=== PATIENT | female | born 1970 | race Caucasian/White ===

== ENCOUNTER 2017-06-02 18:16 | Emergency (ER) | payer MEDICARE ==
--- NOTE | 2017-06-02 18:34 | ERPHSYRPT ---
- History of Present Illness Time Seen by Provider: 06/02/17 18:29 Source: patient Physician History: CC: left thumb injury Hx: 47 y/o patient of Dr Marques with hx of stroke affected right side was folding laundry and caught the left thumb and felt a pop this evening. Moderate pain for which she took a vicodin. No other injuries. Prior carpal tunnel surgery. Occurred: just prior to arrival Severity of Pain-Max: moderate Severity of Pain-Current: moderate Extremities Pain Location: thumb: left Allergies/Adverse Reactions: No Known Drug Allergies Allergy (Verified 06/02/17 18:32) Home Medications: Alprazolam 1 mg [Xanax 1 mg] 1 mg PO TID 01/25/17 [History] Aspirin [Aspirin EC] 81 mg PO DAILY 01/25/17 [History] Cholecalciferol (Vitamin D3) [Vitamin D] 1,000 unit PO DAILY 01/25/17 [ History] Clopidogrel Bisulfate 75 mg [PLAVIX 75 MG Tablet] 75 mg PO DAILY 01/25/17 [History] Dextroamphetamine/Amphetamine [Adderall 20 mg Tablet] 20 mg PO BID 01/25/17 [ History] Fluoxetine HCl [Prozac] 20 mg PO DAILY 01/25/17 [History] Furosemide 40 mg [Lasix 40 MG] 40 mg PO DAILY 01/25/17 [History] Hydrocodone/APAP 10/325 mg [[place] 10/325 MG Tablet] 1 tab PO Q4-6HPRN PRN 01/25/17 [History] Levothyroxine Sodium 75 Mcg [Synthroid 75 Mcg] 75 mcg PO DAILY 01/25/17 [ History] Lisinopril 20 mg [Zestril 20 MG] 20 mg PO DAILY 01/25/17 [History] Metformin HCl 500 mg [Glucophage 500 MG] 500 mg PO BID 01/25/17 [History] Potassium Chloride 10 Meq Tab* [Klor Con 10 MEQ] 10 meq PO .UNKNOWN 01/25/17 [History] Sennosides [Senokot] 8.6 mg PO .UNKNOWN 01/25/17 [History] Simvastatin 20 mg PO HS 01/25/17 [History] Zolpidem Tartrate [Ambien] 10 mg PO HS 01/25/17 [History] Hx Tetanus, Diphtheria Vaccination/Date Given: Yes Hx Influenza Vaccination/Date Given: Yes Hx Pneumococcal Vaccination/Date Given: Yes - Review of Systems Constitutional: No Symptoms Musculoskeletal: Injury (left thumb), No Back Pain, No Neck Pain Neurological: Focal Weakness (right side chronic) - Past Medical History Pertinent Past Medical History: Yes Neurological History: Stroke ENT History: No Pertinent History Cardiac History: Hypertension Respiratory History: No Pertinent History Endocrine Medical History: Diabetes Type II Musculoskeletal History: No Pertinent History GI Medical History: No Pertinent History History: No Pertinent History Psycho-Social History: Anxiety, Depression, Panic Disorder Female Reproductive Disorders: No Pertinent History - Past Surgical History Past Surgical History: Yes Neuro Surgical History: No Pertinent History Cardiac: No Pertinent History Respiratory: No Pertinent History Gastrointestinal: No Pertinent History Genitourinary: No Pertinent History Musculoskeletal: Orthopedic Surgery Female Surgical History: No Pertinent History Other Surgical History: right foot surg - Social History Smoking Status: Current every day smoker How long have you smoked: 20 yrs Exposure to second hand smoke: Yes Drug Use: none Patient Lives Alone: Yes Significant Family History: heart disease - Female History Hx Now: No - Nursing Vital Signs Nursing Vital Signs: Initial Vital Signs Temperature 98.0 F 06/02/17 18:31 Pulse Rate 90 06/02/17 18:31 Respiratory Rate 18 06/02/17 18:31 Blood Pressure 121/69 06/02/17 18:31 O2 Sat by Pulse Oximetry 98 06/02/17 18:31 Pain Scale Pain Intensity 4 - Physical Exam General Appearance: alert Eyes, Ears, Nose, Throat Exam: moist mucous membranes Neck Exam: supple Cardiovascular/Respiratory Exam: regular rate/rhythm Mental Status Exam: alert, oriented x 3, cooperative Skin Exam: warm, dry Comments: left thumb tender with some swelling at the MCP. ROM intact. Good cap refill. Good radial pulse. No wrist tenderness. - Course Nursing assessment & vital signs reviewed: Yes - Radiology Exams left hand X-ray Interpretation: Interpreted by me (avulsion chip at MCP, no other fx or dislocation) Ordered Tests: Active Orders 24 hr Category Date Time Status Cold Application STAT Care 06/02/17 18:29 Active Splint STAT Care 06/02/17 18:29 Active HAND (MINIMUM 3 VIEWS) Stat Exams 06/02/17 18:29 Taken - Progress Progress Note: 06/02/17 19:05 She has pain medication at home. She will follow up with Dr Marques or hand doctor next week. Splinted in thumb spica position per RN. Good cap refill and alignment post splint. Counseled pt/family regarding: diagnosis, need for follow-up - Departure Time of Disposition: 19:06 Departure Disposition: Home Clinical Impression: Left thumb sprain, avulsion fracture left thumb MCP Condition: Stable Critical Care Time: No Referrals: KAMILA MARQUES [Primary Care Provider] - Instructions: Finger Fracture Additional Instructions: Splint Ice Rest Take your pain medication as already prescribed. Follow up with Dr Bell or hand doctor next week.
[2017-06-02 19:20] VITALS: BP 111/66; PULSE 85; O2SAT 100
--- NOTE | 2017-06-02 22:48 | XRAY ---
Indication: First MCP pain. Comparison: None 3 views of the left hand demonstrates tiny well circumscribed ossification adjacent to the head of the first metacarpal either degenerative versus old injury. No other bony, articular, or soft tissue abnormalities.
== END 2017-06-02 19:20 | disposition home or self-care (01) ==
LOC: ED 18:16
PROC: 2W3HX1Z Immobilization of Left Thumb using Splint (ICD-10-PCS; principal; 2017-06-02)
DX: S63.602A Unspecified sprain of left thumb, initial encounter (principal); S62.502A Fracture of unspecified phalanx of left thumb, initial encounter for closed fracture; X50.0XXA Overexertion from strenuous movement or load, initial encounter; E11.9 Type 2 diabetes mellitus without complications; I10 Essential (primary) hypertension; Z79.899 Other long term (current) drug therapy; Z79.84 Long term (current) use of oral hypoglycemic drugs; I25.2 Old myocardial infarction
CPT/HCPCS: 29131; 73130; 99283

== ENCOUNTER 2017-09-03 17:08 | Emergency (ER) | payer MEDICARE ==
--- NOTE | 2017-09-03 17:39 | ERPHSYRPT ---
- History of Present Illness Time Seen by Provider: 09/03/17 17:31 Source: patient, family Exam Limitations: no limitations Patient Subjective Stated Complaint: pt co pain to left jaw started today, pain does not radiate, no chest pain, no n/v. Triage Nursing Assessment: pt walked in, resp easy, skin w/d pink. pt has hx of old stroke and is flaccid to right arm Physician History: The patient is a 47-year-old female complaining of intermittent left neck and jaw pain that began 4-1/2 hours ago. The pain will last 2 seconds and then goes away. It is a sharp pain. He has happened maybe 10 times over the last 4- 1/2 hours. She denies nausea or shortness of breath. She denies chest pain. Nothing seems to reproduce or cause the pain that she can identify. She called her local doctor and was not able to get in. She was concerned to wait until tomorrow. Her past medical history is significant for a stroke with residual right-sided weakness, diabetes, hypertension, high cholesterol, hypothyroidism, and ADHD. Timing/Duration: today, hour(s) (4 1/2), intermittent, resolved prior to arrival , sudden Severity: mild Modifying Factors: Improves With: nothing Associated Symptoms: denies symptoms, No nausea, No vomiting, No shortness of breath, No chest pain Allergies/Adverse Reactions: No Known Drug Allergies Allergy (Verified 09/03/17 17:19) Home Medications: Alprazolam 1 mg [Xanax 1 mg] 1 mg PO TID 01/25/17 [History] Aspirin [Aspirin EC] 81 mg PO DAILY 01/25/17 [History] Cholecalciferol (Vitamin D3) [Vitamin D] 1,000 unit PO DAILY 01/25/17 [ History] Clopidogrel Bisulfate 75 mg [PLAVIX 75 MG Tablet] 75 mg PO DAILY 01/25/17 [History] Dextroamphetamine/Amphetamine [Adderall 20 mg Tablet] 30 mg PO BID 01/25/17 [ History] Fluoxetine HCl [Prozac] 20 mg PO DAILY 01/25/17 [History] Furosemide 40 mg [Lasix 40 MG] 40 mg PO DAILY 01/25/17 [History] Hydrocodone/APAP 10/325 mg [[place] 10/325 MG Tablet] 1 tab PO Q4-6HPRN PRN 01/25/17 [History] Levothyroxine Sodium 75 Mcg [Synthroid 75 Mcg] 75 mcg PO DAILY 01/25/17 [ History] Lisinopril 20 mg [Zestril 20 MG] 20 mg PO DAILY 01/25/17 [History] Metformin HCl 500 mg [Glucophage 500 MG] 500 mg PO BID 01/25/17 [History] Potassium Chloride 10 Meq Tab* [Klor Con 10 MEQ] 10 meq PO .UNKNOWN 01/25/17 [History] Sennosides [Senokot] 8.6 mg PO .UNKNOWN 01/25/17 [History] Simvastatin 20 mg PO HS 01/25/17 [History] Zolpidem Tartrate [Ambien] 10 mg PO HS 01/25/17 [History] Hx Tetanus, Diphtheria Vaccination/Date Given: Yes Hx Influenza Vaccination/Date Given: No Hx Pneumococcal Vaccination/Date Given: No Immunizations Up to Date: Yes - Review of Systems Constitutional: No Fever, No Chills Eyes: No Symptoms Ears, Nose, & Throat: No Symptoms Respiratory: No Cough, No Dyspnea Cardiac: No Chest Pain, No Edema, No Syncope Abdominal/Gastrointestinal: No Abdominal Pain, No Nausea, No Vomiting, No Diarrhea Genitourinary Symptoms: No Dysuria Musculoskeletal: Neck Pain Skin: No Rash Neurological: No Dizziness, No Focal Weakness, No Sensory Changes Psychological: No Symptoms Endocrine: No Symptoms Hematologic/Lymphatic: No Symptoms Immunological/Allergic: No Symptoms All Other Systems: Reviewed and Negative - Past Medical History Pertinent Past Medical History: Yes Neurological History: Stroke ENT History: No Pertinent History Cardiac History: High Cholesterol, Hypertension Respiratory History: No Pertinent History Endocrine Medical History: Diabetes Type II Musculoskeletal History: No Pertinent History GI Medical History: No Pertinent History History: No Pertinent History Psycho-Social History: Anxiety, Depression, Panic Disorder Female Reproductive Disorders: No Pertinent History - Past Surgical History Past Surgical History: Yes Neuro Surgical History: No Pertinent History Cardiac: No Pertinent History Respiratory: No Pertinent History Gastrointestinal: No Pertinent History Genitourinary: No Pertinent History Musculoskeletal: Orthopedic Surgery Female Surgical History: No Pertinent History Other Surgical History: right foot surg - Social History Smoking Status: Current every day smoker How long have you smoked: 20 yrs Exposure to second hand smoke: Yes Drug Use: none Patient Lives Alone: No Significant Family History: heart disease - Female History Hx Last Menstrual Period: last week Hx Now: No - Nursing Vital Signs Nursing Vital Signs: Initial Vital Signs Temperature 98.3 F 09/03/17 17:14 Pulse Rate 93 H 09/03/17 17:14 Respiratory Rate 18 09/03/17 17:14 Blood Pressure 148/75 09/03/17 17:14 O2 Sat by Pulse Oximetry 99 09/03/17 17:14 Pain Scale Pain Intensity [Jaw] 7 Pain Intensity 5 - Physical Exam General Appearance: no apparent distress, alert Eye Exam: PERRL/EOMI, eyes nml inspection Ears, Nose, Throat Exam: normal ENT inspection, TMs normal, pharynx normal, moist mucous membranes Neck Exam: normal inspection, non-tender, supple, full range of motion, other ( No neck pain at present time nor tenderness on palpation.) Respiratory Exam: normal breath sounds, lungs clear, No respiratory distress Cardiovascular Exam: regular rate/rhythm, normal heart sounds, normal peripheral pulses Gastrointestinal/Abdomen Exam: soft, normal bowel sounds, No tenderness, No mass Pelvic Exam: not done Rectal Exam: not done Back Exam: normal inspection, normal range of motion, No CVA tenderness, No vertebral tenderness Extremity Exam: normal inspection, normal range of motion, pelvis stable Neurologic Exam: alert, oriented x 3, cooperative, normal mood/affect, nml cerebellar function, nml station & gait, sensation nml, No motor deficits Skin Exam: normal color, warm, dry, No rash Lymphatic Exam: No adenopathy SpO2 Interpretation: normal SpO2: 99 Oxygen Delivery: Room Air - Course EKG Interpreted by Me: RATE, Sinus Rhythm, NORMAL AXIS, NORMAL INTERVALS, NORMAL QRS, NORMAL ST-T, Other (No change comp EKG 02/21/17) Ordered Tests: Active Orders 24 hr Category Date Time Status Clean Catch Urine Specimen STAT Care 09/03/17 18:05 Active EKG-ER Only STAT Care 09/03/17 17:28 Active IV Insertion STAT Care 09/03/17 17:28 Active CHEST 2 VIEWS (PA AND LAT) Stat Exams 09/03/17 17:44 Taken CBC W DIFF Stat Lab 09/03/17 17:58 Completed CMP Stat Lab 09/03/17 17:58 Completed TROPONIN Q3H Lab 09/03/17 17:45 Completed TROPONIN Q3H Lab 09/03/17 20:45 Ordered TROPONIN Q3H Lab 09/03/17 23:45 Ordered TROPONIN Q3H Lab 09/04/17 02:45 Ordered TROPONIN Q3H Lab 09/04/17 05:45 Ordered UA W/RFX UR CULTURE Stat Lab 09/03/17 17:58 Completed Lab/Rad Data: Laboratory Result Diagrams 09/03/17 17:58 09/03/17 17:58 Laboratory Results 09/03/17 09/03/17 09/03/17 Range/Units 17:58 17:58 17:58 WBC 9.3 (4.0-10.5) K/mm3 RBC 3.66 L (4.1-5.4) M/mm3 Hgb 11.7 L (12.0-16.0) gm/dl Hct 36.5 (35-47) % MCV 99.7 (78-100) fl MCH 31.9 (26-32) pg MCHC 32.1 (32-36) g/dl RDW 13.3 (11.5-14.0) % Plt Count 305 (150-450) K/mm3 MPV 10.6 H (6-9.5) fl Gran % 59.0 (36.0-66.0) % Lymphocytes % 32.2 (24.0-44.0) % Monocytes % 6.2 (0.0-12.0) % Eosinophils % 2.2 (0.00-5.0) % Basophils % 0.4 (0.0-0.4) % Basophils # 0.04 (0-0.4) Sodium 142 (136-145) mEq/L Potassium 4.4 (3.5-5.1) mEq/L Chloride 105 (98-107) mEq/L Carbon Dioxide 28.1 (21-32) mEq/L Anion Gap 13.4 (5-15) MEQ/L BUN 10 (9-20) mg/dL Creatinine 0.78 (0.55-1.30) mg/dl Estimated GFR > 60 ML/MIN Glucose 120 H (70-110) MG/DL Calcium 9.2 (8.5-10.1) mg/dL Total Bilirubin 0.20 (0.2-1.0) mg/dL AST 17 (15-37) U/L ALT 24 (12-78) U/L Alkaline Phosphatase 69 (46-116) U/L Troponin I (0.000-0.056) ng/ml Serum Total Protein 7.4 (6.4-8.2) gm/dL Albumin 3.9 (3.4-5.0) g/dL Ur Collection Type CLEAN CATCH Urine Color YELLOW (YELLOW) Urine Appearance CLEAR (CLEAR) Urine pH 5.0 (5-6) Ur Specific [place] 1.005 (1.005-1.025) Urine Protein NEGATIVE (Negative) Urine Ketones NEGATIVE (NEGATIVE) Urine Blood NEGATIVE (0-5) Maurisio/ul Urine Nitrite NEGATIVE (NEGATIVE) Urine Bilirubin NEGATIVE (NEGATIVE) Urine Urobilinogen NORMAL (0-1) mg/dL Ur Leukocyte Esterase NEGATIVE (NEGATIVE) Urine Culture Reflexed NO (NO) Urine Glucose NEGATIVE (NEGATIVE) mg/dL Specimen Received [id number] 09/03/17 Range/Units 17:45 WBC (4.0-10.5) K/mm3 RBC (4.1-5.4) M/mm3 Hgb (12.0-16.0) gm/dl Hct (35-47) % MCV (78-100) fl MCH (26-32) pg MCHC (32-36) g/dl RDW (11.5-14.0) % Plt Count (150-450) K/mm3 MPV (6-9.5) fl Gran % (36.0-66.0) % Lymphocytes % (24.0-44.0) % Monocytes % (0.0-12.0) % Eosinophils % (0.00-5.0) % Basophils % (0.0-0.4) % Basophils # (0-0.4) Sodium (136-145) mEq/L Potassium (3.5-5.1) mEq/L Chloride (98-107) mEq/L Carbon Dioxide (21-32) mEq/L Anion Gap (5-15) MEQ/L BUN (9-20) mg/dL Creatinine (0.55-1.30) mg/dl Estimated GFR ML/MIN Glucose (70-110) MG/DL Calcium (8.5-10.1) mg/dL Total Bilirubin (0.2-1.0) mg/dL AST (15-37) U/L ALT (12-78) U/L Alkaline Phosphatase (46-116) U/L Troponin I < 0.017 (0.000-0.056) ng/ml Serum Total Protein (6.4-8.2) gm/dL Albumin (3.4-5.0) g/dL Ur Collection Type Urine Color (YELLOW) Urine Appearance (CLEAR) Urine pH (5-6) Ur Specific [place] (1.005-1.025) Urine Protein (Negative) Urine Ketones (NEGATIVE) Urine Blood (0-5) Maurisio/ul Urine Nitrite (NEGATIVE) Urine Bilirubin (NEGATIVE) Urine Urobilinogen (0-1) mg/dL Ur Leukocyte Esterase (NEGATIVE) Urine Culture Reflexed (NO) Urine Glucose (NEGATIVE) mg/dL Specimen Received - Progress Progress: improved (on the step was a moderate-sized fatty umbilic with us the mid I did) - Departure Time of Disposition: 18:57 Departure Disposition: Home Clinical Impression: Neck pain on left side Condition: Stable Critical Care Time: No Referrals: KAMILA MENDOZA [Primary Care Provider] - Additional Instructions: You have brief intermittent episodes of left-sided neck pain. The evaluation in the ER did not show any evidence of cardiac problems, including an EKG and a troponin. Follow up tomorrow with your family doctor.
[2017-09-03 18:06] LABS: BASOPHIL % 0.4 % (0.0-0.4); Eosinophil % 2.2 % (0.00-5.0); Lymphocytes % 32.2 % (24.0-44.0); Mean Cell Volume 99.7 fl (78-100); Mean Platelet Volume 10.6 fl (6-9.5); Monocytes % 6.2 % (0.0-12.0); Platelet Count 305 K/mm3 (150-450); Red Blood Count 3.66 M/mm3 (4.1-5.4); Red Cell Distribution Width 13.3 % (11.5-14.0); White Blood Count 9.3 K/mm3 (4.0-10.5)
[2017-09-03 18:08] LABS: Mean Corpuscular Hemoglobin 31.9 pg (26-32)
[2017-09-03 18:11] LABS: Bilirubin NEGATIVE (NEGATIVE); Blood NEGATIVE Ery/ul (0-5); COMPLETE URINE MICROSCOPIC? NO; Collection Type CLEAN CATCH; Glucose NEGATIVE (NEGATIVE); Leukocyte Esterase NEGATIVE (NEGATIVE)
[2017-09-03 18:33] LABS: ALBUMIN 3.9 g/dL (3.4-5.0); ALKALINE PHOSPHATASE 69 U/L (46-116); ANION GAP 13.4 MEQ/L (5-15); BLOOD UREA NITROGEN 10 mg/dL (9-20); CHLORIDE 105 mEq/L (98-107); Carbon Dioxide 28.1 mEq/L (21-32); Glucose 120 MG/DL (70-110); Potassium 4.4 mEq/L (3.5-5.1); SGOT/AST 17 U/L (15-37); SGPT/ALT 24 U/L (12-78); SODIUM 142 mEq/L (136-145); Total Protein 7.4 gm/dL (6.4-8.2)
[2017-09-03 18:35] LABS: ADD URINE CULTURE? NO (NO)
[2017-09-03 19:17] VITALS: BP 134/75; PULSE 76; O2SAT 97
--- NOTE | 2017-09-04 08:44 | XRAY ---
Indication: Neck pain. Comparison: October 17, 2012. PA/lateral chest again demonstrates normal heart and lungs. Bony thorax intact. No new/acute findings.
== END 2017-09-03 19:11 | disposition home or self-care (01) ==
LOC: ED 17:08
DX: M54.2 Cervicalgia (principal); I69.351 Hemiplegia and hemiparesis following cerebral infarction affecting right dominant side; E11.9 Type 2 diabetes mellitus without complications; I10 Essential (primary) hypertension; E78.00 Pure hypercholesterolemia, unspecified; E03.9 Hypothyroidism, unspecified; F90.9 Attention-deficit hyperactivity disorder, unspecified type; Z79.899 Other long term (current) drug therapy; Z79.891 Long term (current) use of opiate analgesic; Z79.84 Long term (current) use of oral hypoglycemic drugs
CPT/HCPCS: 36000; 36415; 71020; 80053; 81002; 84484; 85025; 93005; 99284

== ENCOUNTER 2020-04-01 11:47 | Observation (INO) | payer MEDICARE ==
[2020-04-01] MEDS ORDERED: Sodium Chloride 0.9% 1000 ML 1,000 ML IV STA (11:50)
--- NOTE | 2020-04-01 12:01 | ERPHSYRPT ---
- History of Present Illness Time Seen by Provider: 04/01/20 12:00 Source: patient Exam Limitations: no limitations Physician History: Patient is a 50-year-old female with a history of diabetes and stroke presents to our ED from the physical therapy department here at [facility]. Patient was standing in the parallel bars performing exercises when she became lightheaded. Patient was walked over to the exercise mat where she had a syncopal episode. Syncope lasted approximately 5 minutes before patient awoke. There was no seizure-like activity reported. No associated trauma. Patient denied chest pain shortness of breath. Accu-Chek at the time was 113. Vitals were immediately assessed and were all within normal limits. monitoring manager revealed sinus rhythm. Physical therapy was discontinued. Patient was brought to our ED for an evaluation. Patient denies pain at this time. Patient is unsure what happened. Patient voices no other complaints at this time. Witnessed: other Prior Episodes: single episode today Timing/Duration: today, other (Syncopal episode lasted approximately 5 minutes.) Precipitating Factors: other (Patient was in physical therapy department ambulating in the parallel bars) Context: standing Loss of Consciousness: prolonged (minutes) Charcter of event(s): became unresponsive (While in the parallel bars patient began to feel lightheaded. Patient was walked over to the exercise table and fainted. There is no collapse no trauma associated with this event.) Allergies/Adverse Reactions: No Known Drug Allergies Allergy (Verified 09/03/17 17:19) Home Medications: Alprazolam 1 mg [Xanax 1 mg] 1 mg PO TID 01/25/17 [History] Aspirin [Aspirin EC] 81 mg PO DAILY 01/25/17 [History] Cholecalciferol (Vitamin D3) [Vitamin D] 1,000 unit PO DAILY 01/25/17 [ History] Clopidogrel Bisulfate 75 mg [PLAVIX 75 MG Tablet] 75 mg PO DAILY 01/25/17 [History] Dextroamphetamine/Amphetamine [Adderall 20 mg Tablet] 30 mg PO BID 01/25/17 [ History] Fluoxetine HCl [Prozac] 20 mg PO DAILY 01/25/17 [History] Furosemide 40 mg [Lasix 40 MG] 40 mg PO DAILY 01/25/17 [History] Hydrocodone/APAP 10/325 mg [[place] 10/325 MG Tablet] 1 tab PO Q4-6HPRN PRN 01/25/17 [History] Levothyroxine Sodium 75 Mcg [Synthroid 75 Mcg] 75 mcg PO DAILY 01/25/17 [ History] Lisinopril 20 mg [Zestril 20 MG] 20 mg PO DAILY 01/25/17 [History] Metformin HCl 500 mg [Glucophage 500 MG] 500 mg PO BID 01/25/17 [History] Potassium Chloride 10 Meq Tab* [Klor Con 10 MEQ] 10 meq PO .UNKNOWN 01/25/17 [History] Sennosides [Senokot] 8.6 mg PO .UNKNOWN 01/25/17 [History] Simvastatin 20 mg PO HS 01/25/17 [History] Zolpidem Tartrate [Ambien] 10 mg PO HS 01/25/17 [History] Hx Tetanus, Diphtheria Vaccination/Date Given: Yes Hx Influenza Vaccination/Date Given: No Hx Pneumococcal Vaccination/Date Given: No - Past Medical History Pertinent Past Medical History: Yes Neurological History: No Pertinent History ENT History: No Pertinent History Cardiac History: High Cholesterol, Hypertension Respiratory History: No Pertinent History Endocrine Medical History: Diabetes Type II, Hypothyroidism Musculoskeletal History: Arthritis GI Medical History: No Pertinent History History: No Pertinent History Psycho-Social History: Anxiety, Depression, Panic Disorder Female Reproductive Disorders: No Pertinent History - Past Surgical History Past Surgical History: Yes Neuro Surgical History: No Pertinent History Cardiac: No Pertinent History Respiratory: No Pertinent History Gastrointestinal: No Pertinent History Genitourinary: No Pertinent History Musculoskeletal: Orthopedic Surgery Female Surgical History: No Pertinent History Other Surgical History: right foot surg - Social History Smoking Status: Current every day smoker How long have you smoked: 20 yrs Exposure to second hand smoke: Yes Drug Use: none Patient Lives Alone: No Significant Family History: heart disease - Review of Systems Constitutional: No Symptoms, No Fever, No Chills Eyes: No Symptoms Ears, Nose, & Throat: No Symptoms Respiratory: No Symptoms, No Cough, No Dyspnea Cardiac: No Symptoms, No Chest Pain, No Edema, No Syncope Abdominal/Gastrointestinal: No Symptoms, No Abdominal Pain, No Nausea, No Vomiting, No Diarrhea Genitourinary Symptoms: No Symptoms, No Dysuria Musculoskeletal: No Symptoms, No Back Pain, No Neck Pain Skin: No Symptoms, No Rash Neurological: No Symptoms, No Dizziness, No Focal Weakness, No Sensory Changes Psychological: No Symptoms Endocrine: No Symptoms Hematologic/Lymphatic: No Symptoms Immunological/Allergic: No Symptoms All Other Systems: Reviewed and Negative Physical Exam - Nursing Vital Signs Nursing Vital Signs: Initial Vital Signs Temperature 99.2 F 04/01/20 11:48 Pulse Rate 92 H 04/01/20 11:48 Respiratory Rate 22 04/01/20 11:48 Blood Pressure 135/76 04/01/20 11:48 O2 Sat by Pulse Oximetry 98 04/01/20 11:48 Pain Scale Pain Intensity 0 - [place] Coma Scale Best Eye Response (Andre): (4) open spontaneously Best Verbal Response (Andre): (5) oriented Best Motor Response ([place]): (6) obeys commands Andre Total: 15 - Physical Exam General Appearance: no apparent distress, alert Eye Exam: bilateral eye: normal inspection, PERRL, EOMI Ears, Nose, Throat Exam: normal ENT inspection, pharynx normal, moist mucous membranes Neck Exam: normal inspection, non-tender, supple, full range of motion Respiratory: normal breath sounds, lungs clear, No chest tenderness, No respiratory distress Cardiovascular: regular rate/rhythm, capillary refill <2 sec, No murmur, No pulse deficit Gastrointestinal: soft, No tenderness, No distention, No mass Back Exam: normal inspection, normal range of motion, No CVA tenderness, No vertebral tenderness Extremity Exam: normal inspection, normal range of motion, pelvis stable, No tenderness Peripheral Pulses: carotid (R): 2+, carotid (L): 2+, dorsalis-pedis (R): 2+, dorsalis-pedis (L): 2+ Mental Status: alert, oriented 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, 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 Exam: normal hearing, normal speech, PERRL, No abnormal eye position, No abnormal gag reflex, No abnormal pupil position, No abnormal speech, No facial asymmetry, No facial droop, No facial paresthesias, No facial weakness Coordination/Gait: normal finger to nose Motor/Sensory: no motor deficit (Patient has residual right upper extremity spasticity and right lower extremity weakness due to a stroke in 2008.), no sensory deficit, no pronator drift Skin Exam: normal color, warm, dry, No rash SpO2 Interpretation: normal SpO2: 98 O2 Delivery: Room Air - Course Nursing assessment & vital signs reviewed: Yes EKG Interpreted by Me: RATE (89), Sinus Rhythm, NORMAL AXIS, NORMAL INTERVALS - Radiology Exams Chest X-ray Interpretation: Teleradiologist Report (Normal heart and lungs. Bony thorax intact no new or acute findings.) - CT Exams Head CT Interpretation: Tele-radiologist Report (Left periventricular remote infarct. No acute intracranial abnormalities. Comparison is June 13, 2016.) Ordered Tests: Active Orders 24 hr Category Date Time Status Architecture Analyst STAT Care 04/01/20 11:51 Active EKG-ER Only STAT Care 04/01/20 11:50 Active IV Insertion STAT Care 04/01/20 11:50 Active Pulse Oximetry (ED) STAT Care 04/01/20 11:50 Active CHEST 1 VIEW (PORTABLE) Stat Exams 04/01/20 11:51 Completed HEAD WITHOUT CONTRAST [CT] Stat Exams 04/01/20 11:51 Completed BMP Stat Lab 04/01/20 12:41 Completed CBC W DIFF Stat Lab 04/01/20 12:07 Completed CMP Stat Lab 04/01/20 12:07 Completed ETHYL ALCOHOL Stat Lab 04/01/20 12:07 Completed MAG [MAGNESIUM] Stat Lab 04/01/20 12:42 Completed TROPONIN Q3H Lab 04/01/20 12:07 Completed TROPONIN Q3H Lab 04/01/20 15:00 Ordered TROPONIN Q3H Lab 04/01/20 18:00 Ordered TROPONIN Q3H Lab 04/01/20 21:00 Ordered TROPONIN Q3H Lab 04/02/20 00:00 Ordered UA W/RFX UR CULTURE Stat Lab 04/01/20 Completed Urine Triage Profile Stat Lab 04/01/20 13:30 Completed VBG [VENOUS BLOOD GAS] Stat Lab 04/01/20 13:07 Completed Transfer Order Routine Transfer 04/01/20 Ordered Medication Summary Generic Name Dose Route Start Last Admin Trade Name Freq PRN Reason Stop Dose Admin Sodium Bicarbonate 75 meq/ 1,075 mls @ 75 mls/hr 04/01/20 13:30 04/01/20 14: 28 Dextrose/Sodium Chloride IV 05/01/20 13:29 0 mls/hr .[id number] KIMBERLY 0 mls/hr Infusion Discontinued Medications Generic Name Dose Route Start Last Admin Trade Name Freq PRN Reason Stop Dose Admin Calcium Gluconate 1,000 mg 04/01/20 13:14 04/01/20 13:53 Calcium Gluconate 10% 1000 Mg IV 04/01/20 13:15 1,000 mg STAT ONE Administration Calcium Gluconate Confirm 04/01/20 13:45 Calcium Gluconate 10% 1000 Mg Administered 04/01/20 13:46 Dose 1,000 mg IV .STK-MED ONE Furosemide 20 mg 04/01/20 13:22 04/01/20 14:08 Lasix 20 Mg/2 Ml IV 04/01/20 13:23 Not Given ONCE STA Furosemide 20 mg 04/01/20 14:00 04/01/20 14:13 Lasix 40 Mg/4 Ml IV 04/01/20 14:01 20 mg NOW ONE Administration Furosemide Confirm 04/01/20 14:10 Lasix 40 Mg/4 Ml Administered 04/01/20 14:11 Dose 40 mg .ROUTE .STK-MED ONE Sodium Chloride 1,000 mls @ 999 mls/hr 04/01/20 11:50 04/01/20 13:43 Sodium Chloride 0.9% 1000 Ml IV 04/01/20 12:50 Infused .Q1H1M STA Infusion Sodium Chloride Confirm 04/01/20 12:23 Sodium Chloride 0.9% 1000 Ml Administered 04/01/20 12:24 Dose 1,000 mls @ ud .ROUTE .STK-MED ONE Sodium Polystyrene Sulfonate 30 g 04/01/20 13:14 04/01/20 14:10 Kayexylate 15 Gm/60 Ml PO 04/01/20 13:15 Not Given STAT ONE Sodium Polystyrene Sulfonate Confirm 04/01/20 13:45 Kayexylate 15 Gm/60 Ml Administered 04/01/20 13:46 Dose 30 g .ROUTE .STK-MED ONE Lab/Rad Data: Laboratory Result Diagrams 04/01/20 12:07 04/01/20 12:41 Laboratory Results 04/01/20 04/01/20 04/01/20 Range/Units Unknown 13:30 13:07 WBC (4.0-10.5) K/mm3 RBC (4.1-5.4) M/mm3 Hgb (12.0-16.0) gm/dl Hct (35-47) % MCV (78-100) fl MCH (26-32) pg MCHC (32-36) g/dl RDW (11.5-14.0) % Plt Count (150-450) K/mm3 MPV (7.5-11.0) fl Gran % (36.0-66.0) % Eos # (Auto) (0-0.5) Absolute Lymphs (auto) (1.0-4.6) Absolute Monos (auto) (0.0-1.3) Lymphocytes % (24.0-44.0) % Monocytes % (0.0-12.0) % Eosinophils % (0.00-5.0) % Basophils % (0.0-0.4) % Absolute Granulocytes (1.4-6.9) Basophils # (0-0.4) pO2/FiO2 Ratio 21.0 % VBG pH 7.36 (7.32-7.42) VBG pCO2 at Pat Temp 45 (42-55) mm/Hg VBG pO2 at Pat Temp 20 L (25-40) mm/Hg VBG HCO3 25.4 (22-28) meq/L VBG O2 Sat (Harinder) 40.4 L (95-100) VBG Base Excess -0.4 (-2.0-2.0) VBG Hemoglobin 11.8 VBG Carboxyhemoglobin 4.3 (0.0-6.9) % T HGB POC Potassium 5.7 H (3.5-5.1) Sodium (137-145) mmol/L Potassium (3.5-5.1) mmol/L Chloride (98-107) mmol/L Carbon Dioxide (22-30) mmol/L Anion Gap (5-15) MEQ/L BUN (7-17) mg/dL Creatinine (0.52-1.04) mg/dL Estimated GFR ML/MIN Glucose (74-106) mg/dL Calcium (8.4-10.2) mg/dL Magnesium (1.6-2.3) mg/dL Total Bilirubin (0.2-1.3) mg/dL AST (14-36) U/L ALT (0-35) U/L Alkaline Phosphatase (38-126) U/L Troponin I (0.000-0.034) ng/mL Serum Total Protein (6.3-8.2) g/dL Albumin (3.5-5.0) g/dL Urine Color STRAW (YELLOW) Urine Appearance CLEAR (CLEAR) Urine pH 5.0 (5-6) Ur Specific [place] 1.004 (1.005-1.025) Urine Protein NEGATIVE (Negative) Urine Ketones NEGATIVE (NEGATIVE) Urine Blood NEGATIVE (0-5) Maurisio/ul Urine Nitrite NEGATIVE (NEGATIVE) Urine Bilirubin NEGATIVE (NEGATIVE) Urine Urobilinogen NEGATIVE (0-1) mg/dL Ur Leukocyte Esterase NEGATIVE (NEGATIVE) Urine WBC (Auto) NONE (0-5) /HPF Urine RBC (Auto) NONE (0-2) /HPF U Hyaline Cast (Auto) 3-5 (0-2) /LPF U Epithel Cells (Auto) NONE (FEW) /HPF Urine Bacteria (Auto) RARE (NEGATIVE) /HPF Urine Culture Reflexed NO (NO) Urine Glucose NEGATIVE (NEGATIVE) mg/dL Urine Opiates Level POSITIVE (NEGATIVE) Ur Methadone NEGATIVE (NEGATIVE) Urine Barbiturates NEGATIVE (NEGATIVE) Ur Phencyclidine (PCP) NEGATIVE (NEGATIVE) Urine Amphetamine POSITIVE (NEGATIVE) U Benzodiazepine Level NEGATIVE (NEGATIVE) Urine Cocaine NEGATIVE (NEGATIVE) Urine Marijuana (THC) NEGATIVE (NEGATIVE) Ethyl Alcohol (0-10) mg/dL 04/01/20 04/01/20 04/01/20 Range/Units 12:42 12:41 12:07 WBC (4.0-10.5) K/mm3 RBC (4.1-5.4) M/mm3 Hgb (12.0-16.0) gm/dl Hct (35-47) % MCV (78-100) fl MCH (26-32) pg MCHC (32-36) g/dl RDW (11.5-14.0) % Plt Count (150-450) K/mm3 MPV (7.5-11.0) fl Gran % (36.0-66.0) % Eos # (Auto) (0-0.5) Absolute Lymphs (auto) (1.0-4.6) Absolute Monos (auto) (0.0-1.3) Lymphocytes % (24.0-44.0) % Monocytes % (0.0-12.0) % Eosinophils % (0.00-5.0) % Basophils % (0.0-0.4) % Absolute Granulocytes (1.4-6.9) Basophils # (0-0.4) pO2/FiO2 Ratio % VBG pH (7.32-7.42) VBG pCO2 at Pat Temp (42-55) mm/Hg VBG pO2 at Pat Temp (25-40) mm/Hg VBG HCO3 (22-28) meq/L VBG O2 Sat (Harinder) (95-100) VBG Base Excess (-2.0-2.0) VBG Hemoglobin VBG Carboxyhemoglobin (0.0-6.9) % T HGB POC Potassium (3.5-5.1) Sodium 140 (137-145) mmol/L Potassium 5.2 H (3.5-5.1) mmol/L Chloride 110 H (98-107) mmol/L Carbon Dioxide 24 (22-30) mmol/L Anion Gap 10.6 (5-15) MEQ/L BUN 21 H (7-17) mg/dL Creatinine 0.97 (0.52-1.04) mg/dL Estimated GFR > 60.0 ML/MIN Glucose 75 (74-106) mg/dL Calcium 9.0 (8.4-10.2) mg/dL Magnesium 2.0 (1.6-2.3) mg/dL Total Bilirubin (0.2-1.3) mg/dL AST (14-36) U/L ALT (0-35) U/L Alkaline Phosphatase (38-126) U/L Troponin I < 0.012 (0.000-0.034) ng/mL Serum Total Protein (6.3-8.2) g/dL Albumin (3.5-5.0) g/dL Urine Color (YELLOW) Urine Appearance (CLEAR) Urine pH (5-6) Ur Specific [place] (1.005-1.025) Urine Protein (Negative) Urine Ketones (NEGATIVE) Urine Blood (0-5) Maurisio/ul Urine Nitrite (NEGATIVE) Urine Bilirubin (NEGATIVE) Urine Urobilinogen (0-1) mg/dL Ur Leukocyte Esterase (NEGATIVE) Urine WBC (Auto) (0-5) /HPF Urine RBC (Auto) (0-2) /HPF U Hyaline Cast (Auto) (0-2) /LPF U Epithel Cells (Auto) (FEW) /HPF Urine Bacteria (Auto) (NEGATIVE) /HPF Urine Culture Reflexed (NO) Urine Glucose (NEGATIVE) mg/dL Urine Opiates Level (NEGATIVE) Ur Methadone (NEGATIVE) Urine Barbiturates (NEGATIVE) Ur Phencyclidine (PCP) (NEGATIVE) Urine Amphetamine (NEGATIVE) U Benzodiazepine Level (NEGATIVE) Urine Cocaine (NEGATIVE) Urine Marijuana (THC) (NEGATIVE) Ethyl Alcohol (0-10) mg/dL 04/01/20 04/01/20 Range/Units 12:07 12:07 WBC 7.3 (4.0-10.5) K/mm3 RBC 3.46 L (4.1-5.4) M/mm3 Hgb 11.2 L (12.0-16.0) gm/dl Hct 34.9 L (35-47) % MCV 100.9 H (78-100) fl MCH 32.4 H (26-32) pg MCHC 32.1 (32-36) g/dl RDW 13.4 (11.5-14.0) % Plt Count 345 (150-450) K/mm3 MPV 9.9 (7.5-11.0) fl Gran % 60.5 (36.0-66.0) % Eos # (Auto) 0.15 (0-0.5) Absolute Lymphs (auto) 2.13 (1.0-4.6) Absolute Monos (auto) 0.55 (0.0-1.3) Lymphocytes % 29.2 (24.0-44.0) % Monocytes % 7.5 (0.0-12.0) % Eosinophils % 2.1 (0.00-5.0) % Basophils % 0.7 (0.0-0.4) % Absolute Granulocytes 4.41 (1.4-6.9) Basophils # 0.05 (0-0.4) pO2/FiO2 Ratio % VBG pH (7.32-7.42) VBG pCO2 at Pat Temp (42-55) mm/Hg VBG pO2 at Pat Temp (25-40) mm/Hg VBG HCO3 (22-28) meq/L VBG O2 Sat (Harinder) (95-100) VBG Base Excess (-2.0-2.0) VBG Hemoglobin VBG Carboxyhemoglobin (0.0-6.9) % T HGB POC Potassium (3.5-5.1) Sodium 141 (137-145) mmol/L Potassium 5.6 H (3.5-5.1) mmol/L Chloride 107 (98-107) mmol/L Carbon Dioxide 25 (22-30) mmol/L Anion Gap 14.1 (5-15) MEQ/L BUN 23 H (7-17) mg/dL Creatinine 1.05 H (0.52-1.04) mg/dL Estimated GFR 59.0 ML/MIN Glucose 88 (74-106) mg/dL Calcium 9.5 (8.4-10.2) mg/dL Magnesium (1.6-2.3) mg/dL Total Bilirubin 0.30 (0.2-1.3) mg/dL AST 24 (14-36) U/L ALT 17 (0-35) U/L Alkaline Phosphatase 75 (38-126) U/L Troponin I (0.000-0.034) ng/mL Serum Total Protein 7.6 (6.3-8.2) g/dL Albumin 4.4 (3.5-5.0) g/dL Urine Color (YELLOW) Urine Appearance (CLEAR) Urine pH (5-6) Ur Specific [place] (1.005-1.025) Urine Protein (Negative) Urine Ketones (NEGATIVE) Urine Blood (0-5) Maurisio/ul Urine Nitrite (NEGATIVE) Urine Bilirubin (NEGATIVE) Urine Urobilinogen (0-1) mg/dL Ur Leukocyte Esterase (NEGATIVE) Urine WBC (Auto) (0-5) /HPF Urine RBC (Auto) (0-2) /HPF U Hyaline Cast (Auto) (0-2) /LPF U Epithel Cells (Auto) (FEW) /HPF Urine Bacteria (Auto) (NEGATIVE) /HPF Urine Culture Reflexed (NO) Urine Glucose (NEGATIVE) mg/dL Urine Opiates Level (NEGATIVE) Ur Methadone (NEGATIVE) Urine Barbiturates (NEGATIVE) Ur Phencyclidine (PCP) (NEGATIVE) Urine Amphetamine (NEGATIVE) U Benzodiazepine Level (NEGATIVE) Urine Cocaine (NEGATIVE) Urine Marijuana (THC) (NEGATIVE) Ethyl Alcohol < 10 (0-10) mg/dL - Progress Progress: improved Progress Note: 04/01/20 14:31 Patient reassessed. She is at her baseline neurologically. Neuro exam unchanged since presentation to the ED. Work-up reveals hyperkalemia. EKG shows remote lacunar infarct. Patient will be admitted for syncope and correction of hyperkalemia. Case discussed with Dr. Patel accepts admission to observation. Plan of care discussed with patient. She agrees to admission to [facility] for further evaluation and treatment. Discussed with : Nevaeh Will see patient in: hospital (observation) Counseled pt/family regarding: lab results, diagnosis, need for follow-up, rad results - Departure Departure Disposition: Observation Clinical Impression: Megaloblastic anemia, Hyperkalemia, Syncope Clinical Impression: (Ruled Out): Amphetamine use disorder, mild Condition: Stable Critical Care Time: No Referrals: KAMILA MENDOZA [Primary Care Provider] -
[2020-04-01 12:08] LABS: Absolute Neutrophil Ct (ANC) 4.41 (1.4-6.9); BASOPHIL % 0.7 % (0.0-0.4); Basophil (Absolute #) 0.05 (0-0.4); Eosinophil % 2.1 % (0.00-5.0); Eosinophil (Absolute #) 0.15 (0-0.5); Hematocrit 34.9 % (35-47); Hemoglobin 11.2 gm/dl (12.0-16.0); Lymphocyte (Absolute #) 2.13 (1.0-4.6); Lymphocytes % 29.2 % (24.0-44.0); Mean Cell Volume 100.9 fl (78-100); Mean Corpuscular Hemoglobin 32.4 pg (26-32); Mean Corpuscular Hgb Concent. 32.1 g/dl (32-36); Mean Platelet Volume 9.9 fl (7.5-11.0); Monocyte (Absolute #) 0.55 (0.0-1.3); Monocytes % 7.5 % (0.0-12.0); Neutrophil % 60.5 % (36.0-66.0); Platelet Count 345 K/mm3 (150-450); Red Blood Count 3.46 M/mm3 (4.1-5.4); Red Cell Distribution Width 13.4 % (11.5-14.0); White Blood Count 7.3 K/mm3 (4.0-10.5)
[2020-04-01 12:20] LABS: ALBUMIN 4.4 g/dL (3.5-5.0); ALKALINE PHOSPHATASE 75 U/L (38-126); ANION GAP 14.1 MEQ/L (5-15); BLOOD UREA NITROGEN 23 mg/dL (7-17); CHLORIDE 107 mmol/L (98-107); Calcium 9.5 mg/dL (8.4-10.2); Carbon Dioxide 25 mmol/L (22-30); Creatinine 1 1.05 mg/dL (0.52-1.04); Glucose 88 mg/dL (74-106); Potassium 5.6 mmol/L (3.5-5.1); SGOT/AST 24 U/L (14-36); SGPT/ALT 17 U/L (0-35); SODIUM 141 mmol/L (137-145); Total Protein 7.6 g/dL (6.3-8.2)
--- NOTE | 2020-04-01 12:21 | XRAY ---
Indication: Syncope. Multiple contiguous axial images obtained through the head without contrast. Comparison: June 13, 2006. Left periventricular white matter demonstrates new small focus of remote infarct. No acute intracranial hemorrhage, abnormal extra-axial fluid collection, or mass effect. Fourth ventricle is midline without hydrocephalus. Bony calvarium intact. Visualized paranasal sinuses and mastoid air cells are clear. Impression: Left periventricular remote infarct. No acute intracranial abnormalities.
[2020-04-01 12:22] LABS: ETHYL ALCOHOL < 10 mg/dL (0-10)
--- NOTE | 2020-04-01 12:22 | XRAY ---
Indication: Syncope. Comparison: September 03, 2017. Portable chest again demonstrates normal heart and lungs. Bony thorax intact. No new/acute findings.
[2020-04-01] MEDS ORDERED: Sodium Chloride 0.9% 1000 ML 1,000 ML ONE (12:23)
[2020-04-01 13:10] LABS: VBG BASE EXCESS -0.4 (-2.0-2.0); VBG CARBOXYHEMOGLOBIN 4.3 % T HGB (0.0-6.9); VBG HCO3- 25.4 meq/L (22-28); VBG HEMOGLOBIN 11.8; VBG O2 SATURATION 40.4 (95-100); VBG POTASSIUM 5.7 (3.5-5.1); VBG pH 7.36 (7.32-7.42)
[2020-04-01] MEDS ORDERED: Calcium Gluconate 10% 1000 MG IV ONE ×2 (13:14→13:45)
[2020-04-01] MEDS ORDERED: Kayexylate 15 GM/60 ML PO ONE (13:14)
[2020-04-01] MEDS ORDERED: Lasix 20 MG/2 ML IV STA (13:22)
[2020-04-01] MEDS ORDERED: [UNRECOGNIZED DRUG - OTHER] IV SCH (13:30)
[2020-04-01] MEDS ORDERED: SODIUM BICARBONATE IV SCH (13:30)
[2020-04-01 13:31] LABS: ANION GAP 10.6 MEQ/L (5-15); BLOOD UREA NITROGEN 21 mg/dL (7-17); CHLORIDE 110 mmol/L (98-107); Carbon Dioxide 24 mmol/L (22-30); Creatinine 1 0.97 mg/dL (0.52-1.04); Glucose 75 mg/dL (74-106); Potassium 5.2 mmol/L (3.5-5.1); SODIUM 140 mmol/L (137-145)
[2020-04-01] MEDS ORDERED: Kayexylate 15 GM/60 ML ONE (13:45)
[2020-04-01] MEDS ORDERED: Lasix 40 MG/4 ML IV ONE (14:00)
[2020-04-01 14:03] LABS: Appearance CLEAR (CLEAR); Bacteria RARE /HPF (NEGATIVE); Bilirubin NEGATIVE (NEGATIVE); Blood NEGATIVE Ery/ul (0-5); Glucose NEGATIVE (NEGATIVE); Ketones NEGATIVE (NEGATIVE); Leukocyte Esterase NEGATIVE (NEGATIVE); Nitrite NEGATIVE (NEGATIVE); Protein,Urine Dip NEGATIVE (Negative); Specific Gravity 1.004 (1.005-1.025); Urobilinogen NEGATIVE mg/dL (0-1)
[2020-04-01 14:08] LABS: Amphetamine,Urine POSITIVE (NEGATIVE); Barbiturate,Urine NEGATIVE (NEGATIVE); Benzodiazepine,Urine NEGATIVE (NEGATIVE); Cocaine,Urine NEGATIVE (NEGATIVE); Methadone,Urine NEGATIVE (NEGATIVE); Opiate,Urine POSITIVE (NEGATIVE); PCP,Urine NEGATIVE (NEGATIVE); THC,Urine NEGATIVE (NEGATIVE)
[2020-04-01] MEDS ORDERED: Lasix 40 MG/4 ML ONE (14:10)
[2020-04-01] MEDS ORDERED: [UNRECOGNIZED DRUG - OTHER] PO ONE (15:54)
[2020-04-01] MEDS ORDERED: Norco 10/325 MG Tablet PO ONE (16:02)
[2020-04-01] MEDS ORDERED: Norco 10/325 MG Tablet ONE (16:02)
[2020-04-01] MEDS ORDERED: [UNRECOGNIZED DRUG - OTHER] PO SCH (20:00)
[2020-04-01] MEDS ORDERED: ZOCOR 20MG PO SCH (22:00)
[2020-04-01] MEDS ORDERED: Ambien 10 MG PO SCH (22:00)
[2020-04-01] MEDS: celeBREX 100 MG PO SCH (22:05)
[2020-04-01] MEDS: Norco 10/325 MG Tablet PO PRN (22:06)
[2020-04-01] MEDS: Zanaflex 4 MG PO SCH (22:07)
[2020-04-01] MEDS: XANAX 1 MG PO SCH (22:07)
[2020-04-02 05:51] LABS: BASOPHIL % 0.6 % (0.0-0.4); Basophil (Absolute #) 0.05 (0-0.4); Eosinophil % 2.9 % (0.00-5.0); Eosinophil (Absolute #) 0.23 (0-0.5); Hematocrit 35.2 % (35-47); Hemoglobin 11.2 gm/dl (12.0-16.0); Lymphocyte (Absolute #) 3.34 (1.0-4.6); Lymphocytes % 42.6 % (24.0-44.0); Mean Cell Volume 101.1 fl (78-100); Mean Corpuscular Hemoglobin 32.2 pg (26-32); Mean Corpuscular Hgb Concent. 31.8 g/dl (32-36); Mean Platelet Volume 10.3 fl (7.5-11.0); Monocyte (Absolute #) 0.62 (0.0-1.3); Monocytes % 7.9 % (0.0-12.0); Platelet Count 323 K/mm3 (150-450); Red Blood Count 3.48 M/mm3 (4.1-5.4); Red Cell Distribution Width 13.6 % (11.5-14.0); White Blood Count 7.8 K/mm3 (4.0-10.5)
[2020-04-02 06:25] LABS: ALBUMIN 4.3 g/dL (3.5-5.0); ALKALINE PHOSPHATASE 69 U/L (38-126); ANION GAP 10.7 MEQ/L (5-15); BLOOD UREA NITROGEN 22 mg/dL (7-17); CHLORIDE 105 mmol/L (98-107); Calcium 9.4 mg/dL (8.4-10.2); Carbon Dioxide 28 mmol/L (22-30); Creatinine 1 0.99 mg/dL (0.52-1.04); Glucose 104 mg/dL (74-106); Potassium 4.2 mmol/L (3.5-5.1); SGOT/AST 23 U/L (14-36); SGPT/ALT 16 U/L (0-35); SODIUM 139 mmol/L (137-145); Total Protein 7.4 g/dL (6.3-8.2)
[2020-04-02 06:27] LABS: TROPONIN < 0.012 ng/mL (0.000-0.034)
[2020-04-02] MEDS ORDERED: Glucophage 500 MG PO SCH (08:00)
--- NOTE | 2020-04-02 08:37 | PCM.NOTE ---
Date and Time: 04/02/20 0835 Subjective Assessment: Patient reports she was walking out side last night to get her glasses and felt short of breath. She denies any chest pain. She has been eating well. No stool here yet but does not feel constipated. - Review of Systems Constitutional: No Symptoms Respiratory: Short Of Breath Cardiac: No Symptoms Abdominal/Gastrointestinal: No Symptoms Genitourinary Symptoms: No Symptoms Objective Exam General Appearance: no apparent distress Neurologic Exam: alert, cooperative, normal mood/affect Skin Exam: normal color, warm, dry Cardiovascular Exam: regular rate/rhythm, normal heart sounds, No murmur, No friction rub, No gallop Gastrointestinal/Abdomen Exam: soft, normal bowel sounds, No tenderness, No distention, No mass Extremity Exam: other (no c/c/e; does not use right arm) OBJECTIVE DATA Vital Signs: Vital Signs - 24 hr Temp Pulse Resp BP Pulse Ox 04/02/20 08:03 94 L 04/02/20 07:52 98.8 F 94 H 22 112/58 93 L 04/02/20 04:00 98.3 F 80 24 117/65 95 04/02/20 00:00 98.5 F 89 24 109/65 96 04/01/20 22:29 95 04/01/20 18:00 99.0 F 90 16 116/68 100 04/01/20 17:41 100 04/01/20 16:12 99.0 F 90 20 116/68 100 04/01/20 15:23 99.0 F 88 20 123/78 98 04/01/20 14:32 98 04/01/20 14:23 83 18 131/56 98 04/01/20 13:38 84 18 136/76 100 04/01/20 13:00 87 18 135/76 98 04/01/20 12:01 98 04/01/20 11:48 99.2 F 92 H 22 135/76 98 Pain Assessment - Last Documented Pain Intensity 0 Pain Scale Used 0-10 Pain Scale Intake and Output: Intake & Output 03/31/20 04/01/20 04/02/20 04/03/20 06:59 06:59 06:59 06:59 Intake Total 1370 Output Total 450 Balance 920 Weight 93 kg Lab Results: Accuchecks Date 04/02/20 Date 04/02/20 Time 07:30 Time 00:00 Accucheck Value: 124 Accucheck Value: 188 Accucheck Value: 113 Lab Results-Last 24 Hours 04/01/20 04/01/20 04/01/20 Range/Units 12:07 12:07 12:07 WBC 7.3 (4.0-10.5) K/mm3 RBC 3.46 L (4.1-5.4) M/mm3 Hgb 11.2 L (12.0-16.0) gm/dl Hct 34.9 L (35-47) % MCV 100.9 H (78-100) fl MCH 32.4 H (26-32) pg MCHC 32.1 (32-36) g/dl RDW 13.4 (11.5-14.0) % Plt Count 345 (150-450) K/mm3 MPV 9.9 (7.5-11.0) fl Gran % 60.5 (36.0-66.0) % Eos # (Auto) 0.15 (0-0.5) Absolute Lymphs (auto) 2.13 (1.0-4.6) Absolute Monos (auto) 0.55 (0.0-1.3) Lymphocytes % 29.2 (24.0-44.0) % Monocytes % 7.5 (0.0-12.0) % Eosinophils % 2.1 (0.00-5.0) % Basophils % 0.7 (0.0-0.4) % Absolute Granulocytes 4.41 (1.4-6.9) Basophils # 0.05 (0-0.4) pO2/FiO2 Ratio % VBG pH (7.32-7.42) VBG pCO2 at Pat Temp (42-55) mm/Hg VBG pO2 at Pat Temp (25-40) mm/Hg VBG HCO3 (22-28) meq/L VBG O2 Sat (Harinder) (95-100) VBG Base Excess (-2.0-2.0) VBG Hemoglobin VBG Carboxyhemoglobin (0.0-6.9) % T HGB POC Potassium (3.5-5.1) Sodium 141 (137-145) mmol/L Potassium 5.6 H (3.5-5.1) mmol/L Chloride 107 (98-107) mmol/L Carbon Dioxide 25 (22-30) mmol/L Anion Gap 14.1 (5-15) MEQ/L BUN 23 H (7-17) mg/dL Creatinine 1.05 H (0.52-1.04) mg/dL Estimated GFR 59.0 ML/MIN Glucose 88 (74-106) mg/dL Hemoglobin A1c (4.5-6.0) % Calcium 9.5 (8.4-10.2) mg/dL Magnesium (1.6-2.3) mg/dL Total Bilirubin 0.30 (0.2-1.3) mg/dL AST 24 (14-36) U/L ALT 17 (0-35) U/L Alkaline Phosphatase 75 (38-126) U/L Troponin I < 0.012 (0.000-0.034) ng/mL Serum Total Protein 7.6 (6.3-8.2) g/dL Albumin 4.4 (3.5-5.0) g/dL Urine Color (YELLOW) Urine Appearance (CLEAR) Urine pH (5-6) Ur Specific [place] (1.005-1.025) Urine Protein (Negative) Urine Ketones (NEGATIVE) Urine Blood (0-5) Maurisio/ul Urine Nitrite (NEGATIVE) Urine Bilirubin (NEGATIVE) Urine Urobilinogen (0-1) mg/dL Ur Leukocyte Esterase (NEGATIVE) Urine WBC (Auto) (0-5) /HPF Urine RBC (Auto) (0-2) /HPF U Hyaline Cast (Auto) (0-2) /LPF U Epithel Cells (Auto) (FEW) /HPF Urine Bacteria (Auto) (NEGATIVE) /HPF Urine Culture Reflexed (NO) Urine Glucose (NEGATIVE) mg/dL Urine Opiates Level (NEGATIVE) Ur Methadone (NEGATIVE) Urine Barbiturates (NEGATIVE) Ur Phencyclidine (PCP) (NEGATIVE) Urine Amphetamine (NEGATIVE) U Benzodiazepine Level (NEGATIVE) Urine Cocaine (NEGATIVE) Urine Marijuana (THC) (NEGATIVE) Ethyl Alcohol < 10 (0-10) mg/dL 04/01/20 04/01/20 04/01/20 Range/Units 12:41 12:42 13:07 WBC (4.0-10.5) K/mm3 RBC (4.1-5.4) M/mm3 Hgb (12.0-16.0) gm/dl Hct (35-47) % MCV (78-100) fl MCH (26-32) pg MCHC (32-36) g/dl RDW (11.5-14.0) % Plt Count (150-450) K/mm3 MPV (7.5-11.0) fl Gran % (36.0-66.0) % Eos # (Auto) (0-0.5) Absolute Lymphs (auto) (1.0-4.6) Absolute Monos (auto) (0.0-1.3) Lymphocytes % (24.0-44.0) % Monocytes % (0.0-12.0) % Eosinophils % (0.00-5.0) % Basophils % (0.0-0.4) % Absolute Granulocytes (1.4-6.9) Basophils # (0-0.4) pO2/FiO2 Ratio 21.0 % VBG pH 7.36 (7.32-7.42) VBG pCO2 at Pat Temp 45 (42-55) mm/Hg VBG pO2 at Pat Temp 20 L (25-40) mm/Hg VBG HCO3 25.4 (22-28) meq/L VBG O2 Sat (Harinder) 40.4 L (95-100) VBG Base Excess -0.4 (-2.0-2.0) VBG Hemoglobin 11.8 VBG Carboxyhemoglobin 4.3 (0.0-6.9) % T HGB POC Potassium 5.7 H (3.5-5.1) Sodium 140 (137-145) mmol/L Potassium 5.2 H (3.5-5.1) mmol/L Chloride 110 H (98-107) mmol/L Carbon Dioxide 24 (22-30) mmol/L Anion Gap 10.6 (5-15) MEQ/L BUN 21 H (7-17) mg/dL Creatinine 0.97 (0.52-1.04) mg/dL Estimated GFR > 60.0 ML/MIN Glucose 75 (74-106) mg/dL Hemoglobin A1c (4.5-6.0) % Calcium 9.0 (8.4-10.2) mg/dL Magnesium 2.0 (1.6-2.3) mg/dL Total Bilirubin (0.2-1.3) mg/dL AST (14-36) U/L ALT (0-35) U/L Alkaline Phosphatase (38-126) U/L Troponin I (0.000-0.034) ng/mL Serum Total Protein (6.3-8.2) g/dL Albumin (3.5-5.0) g/dL Urine Color (YELLOW) Urine Appearance (CLEAR) Urine pH (5-6) Ur Specific [place] (1.005-1.025) Urine Protein (Negative) Urine Ketones (NEGATIVE) Urine Blood (0-5) Maurisio/ul Urine Nitrite (NEGATIVE) Urine Bilirubin (NEGATIVE) Urine Urobilinogen (0-1) mg/dL Ur Leukocyte Esterase (NEGATIVE) Urine WBC (Auto) (0-5) /HPF Urine RBC (Auto) (0-2) /HPF U Hyaline Cast (Auto) (0-2) /LPF U Epithel Cells (Auto) (FEW) /HPF Urine Bacteria (Auto) (NEGATIVE) /HPF Urine Culture Reflexed (NO) Urine Glucose (NEGATIVE) mg/dL Urine Opiates Level (NEGATIVE) Ur Methadone (NEGATIVE) Urine Barbiturates (NEGATIVE) Ur Phencyclidine (PCP) (NEGATIVE) Urine Amphetamine (NEGATIVE) U Benzodiazepine Level (NEGATIVE) Urine Cocaine (NEGATIVE) Urine Marijuana (THC) (NEGATIVE) Ethyl Alcohol (0-10) mg/dL 04/01/20 04/01/20 04/01/20 Range/Units 13:30 15:45 18:45 WBC (4.0-10.5) K/mm3 RBC (4.1-5.4) M/mm3 Hgb (12.0-16.0) gm/dl Hct (35-47) % MCV (78-100) fl MCH (26-32) pg MCHC (32-36) g/dl RDW (11.5-14.0) % Plt Count (150-450) K/mm3 MPV (7.5-11.0) fl Gran % (36.0-66.0) % Eos # (Auto) (0-0.5) Absolute Lymphs (auto) (1.0-4.6) Absolute Monos (auto) (0.0-1.3) Lymphocytes % (24.0-44.0) % Monocytes % (0.0-12.0) % Eosinophils % (0.00-5.0) % Basophils % (0.0-0.4) % Absolute Granulocytes (1.4-6.9) Basophils # (0-0.4) pO2/FiO2 Ratio % VBG pH (7.32-7.42) VBG pCO2 at Pat Temp (42-55) mm/Hg VBG pO2 at Pat Temp (25-40) mm/Hg VBG HCO3 (22-28) meq/L VBG O2 Sat (Harinder) (95-100) VBG Base Excess (-2.0-2.0) VBG Hemoglobin VBG Carboxyhemoglobin (0.0-6.9) % T HGB POC Potassium (3.5-5.1) Sodium (137-145) mmol/L Potassium (3.5-5.1) mmol/L Chloride (98-107) mmol/L Carbon Dioxide (22-30) mmol/L Anion Gap (5-15) MEQ/L BUN (7-17) mg/dL Creatinine (0.52-1.04) mg/dL Estimated GFR ML/MIN Glucose (74-106) mg/dL Hemoglobin A1c (4.5-6.0) % Calcium (8.4-10.2) mg/dL Magnesium (1.6-2.3) mg/dL Total Bilirubin (0.2-1.3) mg/dL AST (14-36) U/L ALT (0-35) U/L Alkaline Phosphatase (38-126) U/L Troponin I < 0.012 < 0.012 (0.000-0.034) ng/mL Serum Total Protein (6.3-8.2) g/dL Albumin (3.5-5.0) g/dL Urine Color (YELLOW) Urine Appearance (CLEAR) Urine pH (5-6) Ur Specific [place] (1.005-1.025) Urine Protein (Negative) Urine Ketones (NEGATIVE) Urine Blood (0-5) Maurisio/ul Urine Nitrite (NEGATIVE) Urine Bilirubin (NEGATIVE) Urine Urobilinogen (0-1) mg/dL Ur Leukocyte Esterase (NEGATIVE) Urine WBC (Auto) (0-5) /HPF Urine RBC (Auto) (0-2) /HPF U Hyaline Cast (Auto) (0-2) /LPF U Epithel Cells (Auto) (FEW) /HPF Urine Bacteria (Auto) (NEGATIVE) /HPF Urine Culture Reflexed (NO) Urine Glucose (NEGATIVE) mg/dL Urine Opiates Level POSITIVE (NEGATIVE) Ur Methadone NEGATIVE (NEGATIVE) Urine Barbiturates NEGATIVE (NEGATIVE) Ur Phencyclidine (PCP) NEGATIVE (NEGATIVE) Urine Amphetamine POSITIVE (NEGATIVE) U Benzodiazepine Level NEGATIVE (NEGATIVE) Urine Cocaine NEGATIVE (NEGATIVE) Urine Marijuana (THC) NEGATIVE (NEGATIVE) Ethyl Alcohol (0-10) mg/dL 04/01/20 04/01/20 04/01/20 Range/Units 21:00 Unknown Unknown WBC (4.0-10.5) K/mm3 RBC (4.1-5.4) M/mm3 Hgb (12.0-16.0) gm/dl Hct (35-47) % MCV (78-100) fl MCH (26-32) pg MCHC (32-36) g/dl RDW (11.5-14.0) % Plt Count (150-450) K/mm3 MPV (7.5-11.0) fl Gran % (36.0-66.0) % Eos # (Auto) (0-0.5) Absolute Lymphs (auto) (1.0-4.6) Absolute Monos (auto) (0.0-1.3) Lymphocytes % (24.0-44.0) % Monocytes % (0.0-12.0) % Eosinophils % (0.00-5.0) % Basophils % (0.0-0.4) % Absolute Granulocytes (1.4-6.9) Basophils # (0-0.4) pO2/FiO2 Ratio % VBG pH (7.32-7.42) VBG pCO2 at Pat Temp (42-55) mm/Hg VBG pO2 at Pat Temp (25-40) mm/Hg VBG HCO3 (22-28) meq/L VBG O2 Sat (Harinder) (95-100) VBG Base Excess (-2.0-2.0) VBG Hemoglobin VBG Carboxyhemoglobin (0.0-6.9) % T HGB POC Potassium (3.5-5.1) Sodium (137-145) mmol/L Potassium (3.5-5.1) mmol/L Chloride (98-107) mmol/L Carbon Dioxide (22-30) mmol/L Anion Gap (5-15) MEQ/L BUN (7-17) mg/dL Creatinine (0.52-1.04) mg/dL Estimated GFR ML/MIN Glucose (74-106) mg/dL Hemoglobin A1c 6.73 H (4.5-6.0) % Calcium (8.4-10.2) mg/dL Magnesium (1.6-2.3) mg/dL Total Bilirubin (0.2-1.3) mg/dL AST (14-36) U/L ALT (0-35) U/L Alkaline Phosphatase (38-126) U/L Troponin I < 0.012 (0.000-0.034) ng/mL Serum Total Protein (6.3-8.2) g/dL Albumin (3.5-5.0) g/dL Urine Color STRAW (YELLOW) Urine Appearance CLEAR (CLEAR) Urine pH 5.0 (5-6) Ur Specific [place] 1.004 (1.005-1.025) Urine Protein NEGATIVE (Negative) Urine Ketones NEGATIVE (NEGATIVE) Urine Blood NEGATIVE (0-5) Maurisio/ul Urine Nitrite NEGATIVE (NEGATIVE) Urine Bilirubin NEGATIVE (NEGATIVE) Urine Urobilinogen NEGATIVE (0-1) mg/dL Ur Leukocyte Esterase NEGATIVE (NEGATIVE) Urine WBC (Auto) NONE (0-5) /HPF Urine RBC (Auto) NONE (0-2) /HPF U Hyaline Cast (Auto) 3-5 (0-2) /LPF U Epithel Cells (Auto) NONE (FEW) /HPF Urine Bacteria (Auto) RARE (NEGATIVE) /HPF Urine Culture Reflexed NO (NO) Urine Glucose NEGATIVE (NEGATIVE) mg/dL Urine Opiates Level (NEGATIVE) Ur Methadone (NEGATIVE) Urine Barbiturates (NEGATIVE) Ur Phencyclidine (PCP) (NEGATIVE) Urine Amphetamine (NEGATIVE) U Benzodiazepine Level (NEGATIVE) Urine Cocaine (NEGATIVE) Urine Marijuana (THC) (NEGATIVE) Ethyl Alcohol (0-10) mg/dL 04/02/20 04/02/20 04/02/20 Range/Units 00:55 04:35 05:00 WBC 7.8 (4.0-10.5) K/mm3 RBC 3.48 L (4.1-5.4) M/mm3 Hgb 11.2 L (12.0-16.0) gm/dl Hct 35.2 (35-47) % MCV 101.1 H (78-100) fl MCH 32.2 H (26-32) pg MCHC 31.8 L (32-36) g/dl RDW 13.6 (11.5-14.0) % Plt Count 323 (150-450) K/mm3 MPV 10.3 (7.5-11.0) fl Gran % 46.0 (36.0-66.0) % Eos # (Auto) 0.23 (0-0.5) Absolute Lymphs (auto) 3.34 (1.0-4.6) Absolute Monos (auto) 0.62 (0.0-1.3) Lymphocytes % 42.6 (24.0-44.0) % Monocytes % 7.9 (0.0-12.0) % Eosinophils % 2.9 (0.00-5.0) % Basophils % 0.6 (0.0-0.4) % Absolute Granulocytes 3.60 (1.4-6.9) Basophils # 0.05 (0-0.4) pO2/FiO2 Ratio % VBG pH (7.32-7.42) VBG pCO2 at Pat Temp (42-55) mm/Hg VBG pO2 at Pat Temp (25-40) mm/Hg VBG HCO3 (22-28) meq/L VBG O2 Sat ([place]) (95-100) VBG Base Excess (-2.0-2.0) VBG Hemoglobin VBG Carboxyhemoglobin (0.0-6.9) % T HGB POC Potassium (3.5-5.1) Sodium 139 (137-145) mmol/L Potassium 4.2 (3.5-5.1) mmol/L Chloride 105 (98-107) mmol/L Carbon Dioxide 28 (22-30) mmol/L Anion Gap 10.7 (5-15) MEQ/L BUN 22 H (7-17) mg/dL Creatinine 0.99 (0.52-1.04) mg/dL Estimated GFR > 60.0 ML/MIN Glucose 104 (74-106) mg/dL Hemoglobin A1c (4.5-6.0) % Calcium 9.4 (8.4-10.2) mg/dL Magnesium (1.6-2.3) mg/dL Total Bilirubin 0.20 (0.2-1.3) mg/dL AST 23 (14-36) U/L ALT 16 (0-35) U/L Alkaline Phosphatase 69 (38-126) U/L Troponin I < 0.012 < 0.012 (0.000-0.034) ng/mL Serum Total Protein 7.4 (6.3-8.2) g/dL Albumin 4.3 (3.5-5.0) g/dL Urine Color (YELLOW) Urine Appearance (CLEAR) Urine pH (5-6) Ur Specific [place] (1.005-1.025) Urine Protein (Negative) Urine Ketones (NEGATIVE) Urine Blood (0-5) Maurisio/ul Urine Nitrite (NEGATIVE) Urine Bilirubin (NEGATIVE) Urine Urobilinogen (0-1) mg/dL Ur Leukocyte Esterase (NEGATIVE) Urine WBC (Auto) (0-5) /HPF Urine RBC (Auto) (0-2) /HPF U Hyaline Cast (Auto) (0-2) /LPF U Epithel Cells (Auto) (FEW) /HPF Urine Bacteria (Auto) (NEGATIVE) /HPF Urine Culture Reflexed (NO) Urine Glucose (NEGATIVE) mg/dL Urine Opiates Level (NEGATIVE) Ur Methadone (NEGATIVE) Urine Barbiturates (NEGATIVE) Ur Phencyclidine (PCP) (NEGATIVE) Urine Amphetamine (NEGATIVE) U Benzodiazepine Level (NEGATIVE) Urine Cocaine (NEGATIVE) Urine Marijuana (THC) (NEGATIVE) Ethyl Alcohol (0-10) mg/dL Radiology Exams: Radiology Procedures Category Date Time Status CHEST 1 VIEW (PORTABLE) Stat Exams 04/01/20 11:51 Completed ECHO W/2D AND DOPPLER [US] Routine Exams 04/02/20 Ordered HEAD WITHOUT CONTRAST [CT] Stat Exams 04/01/20 11:51 Completed Assessment/Plan (1) Syncope Current Visit: Yes Status: Acute Assessment & Plan: Check Echo today; consult senior paralegal. No events on telemetry. Code(s): R55 - SYNCOPE AND COLLAPSE (2) Hyperkalemia Current Visit: Yes Status: Acute Assessment & Plan: resolved. She should not take potassium at home. Code(s): E87.5 - HYPERKALEMIA (3) Megaloblastic anemia Current Visit: Yes Status: Acute Assessment & Plan: Will check Vit B 12 level. Code(s): D53.1 - OTHER MEGALOBLASTIC ANEMIAS, NOT ELSEWHERE CLASSIFIED (4) History of stroke Current Visit: Yes Status: Acute Assessment & Plan: Continue home medication. Code(s): Z86.73 - PRSNL HX OF TIA (TIA), AND CEREB INFRC W/O RESID DEFICITS (5) Tobacco abuse Current Visit: Yes Status: Acute Assessment & Plan: Patient does not have plans to quit smoking. Code(s): Z72.0 - TOBACCO USE
[2020-04-02] MEDS: Zanaflex 4 MG PO SCH ×2 (09:19→14:53)
[2020-04-02] MEDS: celeBREX 100 MG PO SCH (09:20)
[2020-04-02] MEDS: XANAX 1 MG PO SCH ×2 (09:20→12:12)
[2020-04-02] MEDS: Norco 10/325 MG Tablet PO PRN ×2 (09:24→14:53)
[2020-04-02] MEDS ORDERED: SENOKOT 8.6 MG PO SCH (10:00)
[2020-04-02] MEDS ORDERED: ATOMOXETINE HCL 100 MG PO SCH (10:00)
[2020-04-02] MEDS ORDERED: PATIENT OWN MEDICATION PO SCH (10:00)
[2020-04-02] MEDS ORDERED: Prozac 20 MG PO SCH (10:00)
[2020-04-02] MEDS ORDERED: MYRBETRIQ PO SCH (10:00)
[2020-04-02] MEDS ORDERED: VITAMIN D PO SCH (10:00)
[2020-04-02] MEDS ORDERED: PLAVIX 75 MG Tablet PO SCH (10:00)
[2020-04-02] MEDS ORDERED: NON-FORMULARY ITEM (Mirabegron [Myrbetriq] 50 MG) PO SCH (10:00)
[2020-04-02] MEDS ORDERED: Zestril 20 MG PO SCH (10:00)
[2020-04-02] MEDS ORDERED: SYNTHROID 75 MCG PO SCH (10:00)
[2020-04-02] MEDS ORDERED: Lasix 40 MG PO SCH (10:00)
[2020-04-02] MEDS ORDERED: ECOTRIN 81 MG PO SCH (10:00)
[2020-04-02] MEDS ORDERED: Provera 2.5 MG PO SCH (10:00)
[2020-04-02] MEDS ORDERED: [UNRECOGNIZED DRUG - OTHER] PO SCH (12:00)
[2020-04-02 16:19] VITALS: BP 133/70; PULSE 95; O2SAT 97
--- NOTE | 2020-04-02 17:15 | PCM.DCORD ---
- Discharge Discharge Date: 04/02/20 Disposition: Home, Self-Care Condition: Fair Prescriptions: Continue Metformin HCl 500 mg [Glucophage 500 MG] 500 mg PO BID Lisinopril 20 mg [Zestril 20 MG] 20 mg PO DAILY Furosemide 40 mg [Lasix 40 MG] 40 mg PO DAILY Simvastatin 20 mg PO HS Hydrocodone/APAP 10/325 mg [[place] 10/325 MG Tablet] 1 tab PO Q4-6HPRN PRN PRN Reason: Pain Zolpidem Tartrate [Ambien] 10 mg PO HS Sennosides [Senokot] 8.6 mg PO DAILY Alprazolam 1 mg [Xanax 1 mg] 1 mg PO QID Clopidogrel Bisulfate 75 mg [PLAVIX 75 MG Tablet] 75 mg PO DAILY Levothyroxine Sodium 75 Mcg [Synthroid 75 Mcg] 75 mcg PO DAILY Cholecalciferol (Vitamin D3) [Vitamin D] 1,000 unit PO DAILY Aspirin [Aspirin EC] 81 mg PO DAILY Fluoxetine HCl [Prozac] 20 mg PO DAILY Dextroamphetamine/Amphetamine [Adderall 20 mg Tablet] 30 mg PO BID Medroxyprogesterone 2.5 mg [Provera 2.5 MG] 2.5 mg PO DAILY Celecoxib 100 mg [celeBREX 100 MG] 200 mg PO BID Mirabegron [Myrbetriq] 50 mg PO DAILY Tizanidine HCl 2 mg PO TID Atomoxetine HCl 100 mg PO DAILY Discontinued Potassium Chloride 10 Meq Tab* [Klor Con 10 MEQ] 10 meq PO DAILY Additional Instructions: Stop taking your potassium. Return to ER if any syncopal episodes, chest pain, or any other concerns. Dr. Villalobos will review your echo results with you at your appointment with him. One of his partners will be reading the Echo and will report to Dr. Villalobos. Follow up with: KAMILA MENDOZA [Primary Care Provider] - 04/06/20 10:30 am PENNY VILLALOBOS [CONSULTING PHYSICIAN] - 04/09/20 9:15 am (via tele )
--- NOTE | 2020-04-05 14:36 | HP ---
The patient was seen on 04/01/2020. HISTORY OF PRESENT ILLNESS: This is a 50 y/o patient who was in rehab after having surgery on her right foot. She reports she was working on the parallel bars and this required a lot of concentration. She felt lightheaded. They report that she passed out for 4-5 minutes and the rapid response team was called. 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 The patient reports that she was sitting down and then laid down so she did not hit her head. This occurred approximately 10 minutes after starting the exercise. She was taken to the Emergency Department for further evaluation. At the time that I saw the patient, she states she feels very anxious and is asking when she may have her Xanax. Emergency Room staff report they just gave her her Adderall and opiate pain medication. The patient reports she had a stroke approximately 10-11 years ago, but then had foot surgery on her Achilles tendon on the right side 09/2019. She reports she continues to smoke and doesn't have any plan to quit. She denies any palpitations or chest pain when this happened. REVIEW OF SYSTEMS: As noted in the HPI. PAST MEDICAL HISTORY: Anxiety, stroke, diabetes, depression. PAST SURGICAL HISTORY: Foot surgery X 2, a urethra surgery when she was 5 years old. SOCIAL HISTORY: She lives alone. Denies any alcohol use. She smokes pack per day of cigarettes. CURRENT MEDICATIONS: Please see the home medication reconciliation form which I reviewed. ALLERGIES: NKDA. PHYSICAL EXAMINATION: VITAL SIGNS: Temperature current 99, heart rate 88, respiratory rate 20, O2 saturation 98% on room air, BP 123/78. GENERAL: The patient is a pleasant lady lying in bed in no acute distress. She does not move her right arm and keeps it flexed at the elbow. HEART: Regular rate and rhythm. No murmurs, gallops, or rubs. CHEST: Clear to auscultation bilaterally. No crackles or wheezes. ABDOMEN: Soft, nontender, nondistended with normal bowel sounds. EXTREMITIES: No clubbing, cyanosis, or edema. SKIN: Warm, dry, and intact. LABORATORY DATA: Her Hgb is 11.2. Potassium 5.6, creatinine 1.05. Head CT was read as left periventricular remote infarct. No acute intracranial abnormalities. Please see the radiologist's report for the full dictation. Chest x-ray was no acute findings. Please see the radiologist's report for the full dictation. ASSESSMENT AND PLAN: 1. SYNCOPE. Will plan to place her in observation on telemetry for close monitoring and check serial troponins. 2. HYPERKALEMIA. She received treatment in the Emergency Room. I am holding her home potassium. Will plan to recheck again in the morning. 3. ANEMIA. Will plan for further work-up. 4. HISTORY OF STROKE, CURRENTLY STABLE. 5. TOBACCO ABUSE. Patient reports she has no plans to quit smoking.
--- NOTE | 2020-04-13 16:00 | ECHO ---
Transthoracic echocardiographic examination and color Doppler was done on 04/02/2020. INDICATION: Hypertension, stroke. The left ventricle was only partially visualized but there were no gross motion abnormality. Estimated global left ventricular ejection fraction around 60%. The left ventricular thickness appears to be normal. The mitral valve is seen and this opens adequately. There is trace mitral regurgitation. Left atrium is normal. The aortic valve is mildly thickened. The peak transaortic gradient is about 12 mm of [place]. The right side chambers appear to be normal. There is trace tricuspid regurgitation. The right ventricular systolic pressure of 25 mm of Mercury.
== END 2020-04-02 17:55 | disposition home or self-care (01) ==
LOC: ED 11:47 → MED SURG 17:38
PROVIDERS: ADMIT Internal Medicine; ATTEND Internal Medicine
DX: R55 Syncope and collapse (principal); E87.5 Hyperkalemia; D53.1 Other megaloblastic anemias, not elsewhere classified; E11.9 Type 2 diabetes mellitus without complications; I10 Essential (primary) hypertension; E03.9 Hypothyroidism, unspecified; E78.00 Pure hypercholesterolemia, unspecified; Z79.01 Long term (current) use of anticoagulants; Z72.0 Tobacco use; Z86.73 Personal history of transient ischemic attack (TIA), and cerebral infarction without residual deficits; Z79.899 Other long term (current) drug therapy
CPT/HCPCS: 36000; 36415; 70450; 71045; 80048; 80053; 80307; 81001; 82607; 82805; 82962; 83036; 83735; 84484; 85025; 93005; 93041; 93268; 93306; 94760; 94762; 96360; 96365; 96374; 99285; G0378; G0480; 96375; J0610; J1940; Q3014; A9270-GY

== ENCOUNTER 2021-06-10 06:29 | Day surgery (SDC) | payer MEDICARE ==
[2021-06-10] MEDS ORDERED: BUPIVACAINE 0.5% VIAL IJ ONE (06:52)
[2021-06-10] MEDS ORDERED: XYLOCAINE 1% HCL 20 ML MDV ONE (06:52)
[2021-06-10] MEDS ORDERED: Lactated Ringers 1,000 ML IV SCH (07:00)
[2021-06-10] MEDS ORDERED: CEFAZOLIN 2 GM-D5W BAG** 2 GM/50 ML ML IV SCH (07:00)
[2021-06-10] MEDS ORDERED: Versed 2 MG/2 ML Injection ONE (08:31)
[2021-06-10] MEDS ORDERED: SUBLIMAZE 100 MCG/2 ML ONE ×2 (08:31→09:06)
[2021-06-10] MEDS ORDERED: DIPRIVAN 200 MG/20 ML IV ONE ×5 (08:31→09:51)
[2021-06-10] MEDS ORDERED: TORAdol 30 mg Injection ONE (09:51)
[2021-06-10] MEDS ORDERED: Zofran 4 MG/2 ML VIAL ONE (09:51)
--- NOTE | 2021-06-10 10:41 | XRAY ---
Indication: Hammertoe surgery. Intraoperative fluoroscopy provided for 1 minute 39 seconds. 7 digital spot images of the right foot submitted for interpretation demonstrates osteotomy heads of 1st/3rd proximal phalanges. Orthopedic screw traverses 1st IP joint and orthopedic K wires traverse entire 3rd/4th phalanges. Correlate with intraoperative findings/report.
--- NOTE | 2021-06-10 11:11 | XRAY ---
1 minute and 39 seconds fluoroscopy time in surgery for foot reconstruction.
[2021-06-10 11:16] VITALS: O2SAT 100
[2021-06-10 11:55] VITALS: BP 129/61; PULSE 62
--- NOTE | 2021-06-10 13:32 | OP ---
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 POSTOPERATIVE DIAGNOSIS: Hallux malleus of the right foot and digital contractures of digits 3 and 4 status post hammer toe digit 3 and 4, and pain right foot. PROCEDURE: Hallux interphalangeal joint arthrodesis, third digit proximal interphalangeal joint arthrodesis and fourth digit distal interphalangeal joint arthrodesis. SURGEON: Pavel Lucas DPM. AIR SAMPLER: None. ANESTHESIA: MAC plus local. See injectables for local details. HEMOSTASIS: Ankle tourniquet set to 250 mm of Mercury for 60 minutes. ESTIMATED BLOOD LOSS: Less than 10 cc. MATERIALS: 4-0 Vicryl, two - 0.062 K-wires and a 2.7 mm variable pitch headless compression screw from [place] and 3-0 Nylon. INJECTABLES: 40 cc of 1:1 mixture of 1% lidocaine plain and 0.5% bupivacaine plain injected in Cole block-type fashion as well as a digital block-type fashion to the first ray as well as the third and fourth digits respectively. 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 She did have surgical intervention for the contracture in the past that resulted in a recurrence of her deformity to her third and fourth toe as well as development of a hallux malleolus. The patient experienced significant amount of pain with ambulation and shoe gear due to the toes digging into the ground. She indicated that her toenails were being pushed back into the nail bed which caused her a significant amount of pain with ambulation and discomfort. The patient was surgical consented however vascular studies were necessary prior to surgical intervention this demonstrated poor vascular flow to the right lower extremity where she was sent for consultation with Dr. Fuller and a fem-pop bypass was performed demonstrating adequate blood flow with triphasic Dopplerable dorsalis pedis and posterior tibial arteries following the procedure. At this time the patient understands all risks, complications and benefits of surgical intervention including but not limited to delayed wound healing, nonwound healing, delayed bone healing, nonbone healing, possible pain, possible loss of extension of surgical site, hardware, possible failure of hardware, possible need for surgical intervention in the future and failure of surgical outcomes. This being noted the patient was advised that there are no guarantees as to the outcome of the surgical intervention. The patient understands all risks and wishes to proceed with the procedure at this time. DESCRIPTION OF PROCEDURE AND FINDINGS: The patient was brought into the OR after adequate assessment by the anesthesia team and placed on the OR table in the supine position. At this time an adequate amount of monitored anesthesia care was performed to sedate the patient. Following this a preoperative block consisting of 40 cc of a 1:1 mixture of 1% lidocaine plain and 0.5% bupivacaine plain was injected in a Cole block and a digital block-type fashion to the right lower extremity digits 3 and 4, and the Cole block to the first ray. The right leg was then prepped and draped in the typical sterile fashion and the extremity was lowered onto the surgical field. At this time the tourniquet was set to 250 mm of Mercury and Esmarch was utilized to exsanguinate the right lower extremity to this point. The leg was then lowered onto the surgical field and a 15 blade was utilized to make a transverse incision over the distal interphalangeal joint of the hallux exposing the head of the proximal phalanx. At this time careful dissection was made to the surrounding soft tissue structures to release the capsular attachments of the distal interphalangeal joint. At this time a sagittal saw was utilized to resect the head of the proximal phalanx and take a thin margin of cartilage off of the base of the distal phalanx cartilage until there was exposed subchondral plate. Copious amounts of sterile saline were utilized to flush the surgical site and a 2.0 mm drill was utilized to fenestrate the bone surfaces. At this time a K-wire was introduced from the distal aspect of the digit down the central aspect of the distal phalanx just beneath the hallux toenail. At this time this was checked under fluoroscopy and position was deemed to be adequate and longitudinal along the cortex of the hallux. At this time a 3.5 x 34 mm headless compression variable pitch screw was introduced from the distal tip of the hallux into the base of the proximal phalanx. At this time the position was deemed to be adequate and this was kept under fluoroscopy and once again deemed to be acceptable. At this time attention then was directed to the third and fourth digits where there was an adductovarus rotation status post a failed proximal interphalangeal joint arthrodesis of the third as well as a residual contracture of the fourth digit at the distal interphalangeal joint. At this time dissection took place to the distal interphalangeal joint respectively utilizing a 15 blade and a J stroke was performed to release the medial and lateral collateral ligaments. At this time a sagittal saw was then utilized to resect the proximal phalangeal head as well as the distal phalangeal base of the respective joints this was checked under fluoroscopy before opposing the two bone ends. At this time the position was deemed to be adequate and the position was deemed to be suitable for position of final arthrodesis. The surgical sites were flushed with copious amounts of sterile saline and the 0.062 K-wires were introduced from the proximal aspect of the proximal phalanx to the third and proximal aspect of the distal phalanx of the fourth and retrograded down through longitudinal cortex of the proximal phalanx of the third and the middle phalanx of the fourth respectively. This was checked under fluoroscopy and deemed to be in adequate position maintaining an appropriate position for healing avoiding any of the residual issues the patient suffered from the previous surgical intervention notably the adductovarus rotation and clawing of the toes. Following this the tourniquet was dropped and a closure consisting of 4-0 Monocryl for the extensor tendon and capsule as well as the 3-0 Nylon was utilized to coapt the skin edges in a horizontal mattress-type fashion. At this time a dressing consisting of Betadine, 4x4, Kerlix and KADEEM was applied to the right lower extremity. The pins of the distal tips of the toe were bent and Jurgan balls were utilized to cap the end of the exposed K-wires. The patient was reversed from anesthesia and following the procedure handled the procedure without complication. The patient was returned to the postoperative anesthesia care unit with vital signs stable and vascular status intact. The patient's orders as indicated in the patient's discharge chart.
== END 2021-06-10 12:00 | disposition home or self-care (01) ==
LOC: SDC 06:29
PROVIDERS: ATTEND Podiatrist Foot & Ankle Surgery
DX: M20.31 Hallux varus (acquired), right foot (principal); M24.574 Contracture, right foot; M20.41 Other hammer toe(s) (acquired), right foot; E11.9 Type 2 diabetes mellitus without complications; I10 Essential (primary) hypertension; Z79.899 Other long term (current) drug therapy; Z79.4 Long term (current) use of insulin
CPT/HCPCS: 28285; 28755; 73630; 76000; 82947; J0690; J1885; J2250; J2405; J2704; J3010

== ENCOUNTER 2021-11-30 22:58 | Emergency (ER) | payer MEDICARE ==
[2021-11-30 23:45] LABS: Absolute Neutrophil Ct (ANC) 3.46 (1.4-6.9); Basophil (Absolute #) 0.06 (0-0.4); Eosinophil % 2.6 % (0.00-5.0); Eosinophil (Absolute #) 0.21 (0-0.5); Hematocrit 36.2 % (35-47); Hemoglobin 11.4 gm/dl (12.0-16.0); Lymphocyte (Absolute #) 3.79 (1.0-4.6); Lymphocytes % 46.5 % (24.0-44.0); Mean Cell Volume 98.1 fl (78-100); Mean Corpuscular Hemoglobin 30.9 pg (26-32); Mean Corpuscular Hgb Concent. 31.5 g/dl (32-36); Mean Platelet Volume 10.3 fl (7.5-11.0); Monocyte (Absolute #) 0.63 (0.0-1.3); Monocytes % 7.7 % (0.0-12.0); Neutrophil % 42.5 % (36.0-66.0); Platelet Count 307 K/mm3 (150-450); Red Blood Count 3.69 M/mm3 (4.1-5.4); Red Cell Distribution Width 12.9 % (11.5-14.0); White Blood Count 8.2 K/mm3 (4.0-10.5)
--- NOTE | 2021-11-30 23:49 | ERPHSYRPT ---
- History of Present Illness Time Seen by Provider: 11/30/21 23:10 Source: patient Exam Limitations: no limitations Patient Subjective Stated Complaint: pt states "My heartbeats feel irregular and hard." Triage Nursing Assessment: pt came into the er via stretcher per ems; pt is axo x4; c/o palpitations; pt states 8/10 pain to back; clear, regular apical heart tone; strong olive radial pulses; strong olive pedal pulses; no edema present; clear lung sounds in all lobes; active bowel sounds; hypertensive Physician History: Patient is a 51-year-old female presents to our emergency department for evaluation of heart palpitations. Patient states she was experiencing heart palpitations. Patient became concerned. 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 Patient was concerned that this would occur. Patient did not have any neurologic manifestations to her heart palpitations. Patient denies chest pain. No nausea or vomiting or diaphoresis. No trauma. No fever. Patient currently asymptomatic. Symptoms were mild in intensity. No specific worsening or improving factors. Patient voices no other complaints or concerns at this time. Timing/Duration: today Severity: mild Modifying Factors: Improves With: nothing Associated Symptoms: denies symptoms, No nausea, No vomiting, No abdominal pain, No shortness of breath, No diaphoresis, No cough, No chest pain (Patient had no chest pain. However for the purposes of this work-up we are considering patient's heart palpitations as a chest pain equivalent) Allergies/Adverse Reactions: No Known Drug Allergies Allergy (Verified 11/30/21 23:03) Home Medications: ALPRAZolam 1 MG [Xanax 1 mg] 1 mg PO QID 01/25/17 [History] Aspirin [Aspirin EC] 81 mg PO DAILY 01/25/17 [History] Cholecalciferol (Vitamin D3) [Vitamin D] 1,000 unit PO DAILY 01/25/17 [ History] Clopidogrel Bisulfate 75 mg [PLAVIX 75 MG Tablet] 75 mg PO DAILY 01/25/17 [History] Dextroamphetamine/Amphetamine [Adderall 20 mg Tablet] 30 mg PO BID 01/25/17 [History] Furosemide 40 mg [Lasix 40 MG] 20 mg PO DAILY 01/25/17 [History] Hydrocodone/APAP 10/325 mg [[place] 10/325 MG TableT] 1 tab PO Q4-6HPRN PRN 01/25/17 [History] Levothyroxine Sodium 75 Mcg [Synthroid 75 Mcg] 75 mcg PO DAILY 01/25/17 [History] Lisinopril 20 mg [Zestril 20 MG] 20 mg PO DAILY 01/25/17 [History] Metformin HCl 500 mg [Glucophage 500 MG] 500 mg PO BID 01/25/17 [History] Sennosides [Senokot] 8.6 mg PO DAILY 01/25/17 [History] Simvastatin 20 mg PO HS 01/25/17 [History] Zolpidem Tartrate [Ambien] 10 mg PO HS 01/25/17 [History] Mirabegron [Myrbetriq] 50 mg PO DAILY 04/01/20 [History] Ascorbic Acid [Vitamin C] 1,000 mg PO DAILY 06/01/21 [History] Atomoxetine HCl [Strattera] 100 mg PO DAILY 06/01/21 [History] Ergocalciferol (Vitamin D2) [Vitamin D2] 50,000 unit PO UD 06/01/21 [History] Fluoxetine HCl [Prozac] 40 mg PO DAILY 06/01/21 [History] Glycopyrrolate 0.5 mg PO TID 06/01/21 [History] Loratadine 10 mg [Claritin 10 mg] 10 mg PO DAILY 06/01/21 [History] Vitamin B Complex 1 each PO DAILY 06/01/21 [History] Hx Tetanus, Diphtheria Vaccination/Date Given: Yes Hx Influenza Vaccination/Date Given: Yes Hx Pneumococcal Vaccination/Date Given: Yes Travel Risk - International Travel Have you traveled outside of the country in past 3 weeks: No - Coronavirus Screening Are you exhibiting any of the following symptoms?: No Close contact with a COVID-19 positive Pt in past 14-21 Days: No - Vaccine Status Have you recieved a Covid-19 vaccination: Yes [employer] 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: Moderna - Vaccination Dates Date of 2cond Vaccination (if applicable): unknown Comment: also received booster - Review of Systems Constitutional: No Symptoms, No Fever, No Chills Eyes: No Symptoms Ears, Nose, & Throat: No Symptoms Respiratory: No Symptoms, No Cough, No Dyspnea Cardiac: No Symptoms, No Chest Pain, No Edema, No Syncope Abdominal/Gastrointestinal: No Symptoms, No Abdominal Pain, No Nausea, No Vomiting, No Diarrhea Genitourinary Symptoms: No Symptoms, No Dysuria Musculoskeletal: No Symptoms, No Back Pain, No Neck Pain Skin: No Symptoms, No Rash Neurological: No Symptoms, No Dizziness, No Focal Weakness, No Sensory Changes Psychological: No Symptoms Endocrine: No Symptoms Hematologic/Lymphatic: No Symptoms Immunological/Allergic: No Symptoms All Other Systems: Reviewed and Negative - Past Medical History Pertinent Past Medical History: Yes Neurological History: Stroke ENT History: No Pertinent History Cardiac History: Hypertension Respiratory History: No Pertinent History Endocrine Medical History: Adrenal Insufficiency, Diabetes Type II, Hyperthyroidism Musculoskeletal History: Osteoarthritis GI Medical History: No Pertinent History History: Renal Disease Psycho-Social History: Anxiety, Depression, Panic Disorder Female Reproductive Disorders: No Pertinent History Other Medical History: SOB w exertion - Past Surgical History Past Surgical History: Yes Neuro Surgical History: No Pertinent History Cardiac: No Pertinent History Respiratory: No Pertinent History Gastrointestinal: No Pertinent History Genitourinary: No Pertinent History Musculoskeletal: Orthopedic Surgery Female Surgical History: No Pertinent History Other Surgical History: right foot surg, femoralangioplasty then bipass. eye lid lift - Social History Smoking Status: Light tobacco smoker How long have you smoked: 20 yrs Exposure to second hand smoke: Yes Drug Use: none Patient Lives Alone: No Significant Family History: heart disease - Female History Hx Now: No - Nursing Vital Signs Nursing Vital Signs: Initial Vital Signs Temperature 97 F 11/30/21 23:04 Pulse Rate 81 11/30/21 23:04 Respiratory Rate 18 11/30/21 23:04 Blood Pressure 149/79 11/30/21 23:04 O2 Sat by Pulse Oximetry 100 11/30/21 23:04 Pain Scale Pain Intensity 2 - Physical Exam General Appearance: no apparent distress, alert Eye Exam: PERRL/EOMI, eyes nml inspection Ears, Nose, Throat Exam: normal ENT inspection, TMs normal, pharynx normal, moist mucous membranes Neck Exam: normal inspection, non-tender, supple, full range of motion Respiratory Exam: normal breath sounds, lungs clear, airway intact, No respiratory distress Cardiovascular Exam: regular rate/rhythm, normal heart sounds, normal peripheral pulses Gastrointestinal/Abdomen Exam: soft, normal bowel sounds, No tenderness, No mass Back Exam: normal inspection, normal range of motion, No CVA tenderness, No vertebral tenderness Extremity Exam: normal inspection, normal range of motion, pelvis stable Neurologic Exam: alert, oriented x 3, cooperative, normal mood/affect, sensation nml, other (Spasticity right upper extremity and right lower extremity residual from previous stroke. Neurologic exam otherwise at patient's baseline. No focal or lateralizing symptoms otherwise.), No motor deficits, No intoxicated appearance Skin Exam: normal color, warm, dry, No rash Lymphatic Exam: No adenopathy SpO2 Interpretation: normal SpO2: 100 O2 Delivery: Room Air - Course Nursing assessment & vital signs reviewed: Yes EKG Interpreted by Me: RATE (78), Sinus Rhythm, NORMAL AXIS, NORMAL INTERVALS - Radiology Exams Chest X-ray Interpretation: Interpreted by me (Normal heart lungs and bony thorax. No acute findings) Ordered Tests: Active Orders 24 hr Category Date Time Status Compressed [employer] Worker STAT Care 11/30/21 23:24 Active EKG-ER Only STAT Care 11/30/21 23:23 Active IV Insertion STAT Care 11/30/21 23:23 Active Pulse Oximetry (ED) STAT Care 11/30/21 23:23 Active CHEST 1 VIEW (PORTABLE) Stat Exams 11/30/21 23:24 Taken CBC W DIFF Stat Lab 11/30/21 23:42 Completed CMP Stat Lab 11/30/21 23:42 Completed MAG [MAGNESIUM] Stat Lab 11/30/21 23:45 Completed NT PRO BNP Stat Lab 11/30/21 23:42 Completed TROPONIN Q3H Lab 11/30/21 23:42 Completed TROPONIN Q3H Lab 12/01/21 02:30 Completed TROPONIN Q3H Lab 12/01/21 05:30 Ordered TROPONIN Q3H Lab 12/01/21 08:30 Ordered TROPONIN Q3H Lab 12/01/21 11:30 Ordered Lab/Rad Data: Laboratory Result Diagrams 11/30/21 23:42 11/30/21 23:42 Laboratory Results 12/01/21 11/30/21 11/30/21 Range/Units 02:30 23:45 23:42 WBC (4.0-10.5) K/mm3 RBC (4.1-5.4) M/mm3 Hgb (12.0-16.0) gm/dl Hct (35-47) % MCV (78-100) fl MCH (26-32) pg MCHC (32-36) g/dl RDW (11.5-14.0) % Plt Count (150-450) K/mm3 MPV (7.5-11.0) fl Gran % (36.0-66.0) % Eos # (Auto) (0-0.5) Absolute Lymphs (auto) (1.0-4.6) Absolute Monos (auto) (0.0-1.3) Lymphocytes % (24.0-44.0) % Monocytes % (0.0-12.0) % Eosinophils % (0.00-5.0) % Basophils % (0.0-0.4) % Absolute Granulocytes (1.4-6.9) Basophils # (0-0.4) Sodium (137-145) mmol/L Potassium (3.5-5.1) mmol/L Chloride (98-107) mmol/L Carbon Dioxide (22-30) mmol/L Anion Gap (5-15) MEQ/L BUN (7-17) mg/dL Creatinine (0.52-1.04) mg/dL Estimated GFR ML/MIN Glucose (74-106) mg/dL Calcium (8.4-10.2) mg/dL Magnesium 1.9 (1.6-2.3) mg/dL Total Bilirubin (0.2-1.3) mg/dL AST (14-36) U/L ALT (0-35) U/L Alkaline Phosphatase (38-126) U/L Troponin I < 0.012 < 0.012 (0.000-0.034) ng/mL NT-Pro-B Natriuret Pep (0-900) pg/mL Serum Total Protein (6.3-8.2) g/dL Albumin (3.5-5.0) g/dL 11/30/21 11/30/21 Range/Units 23:42 23:42 WBC 8.2 (4.0-10.5) K/mm3 RBC 3.69 L (4.1-5.4) M/mm3 Hgb 11.4 L (12.0-16.0) gm/dl Hct 36.2 (35-47) % MCV 98.1 (78-100) fl MCH 30.9 (26-32) pg MCHC 31.5 L (32-36) g/dl RDW 12.9 (11.5-14.0) % Plt Count 307 (150-450) K/mm3 MPV 10.3 (7.5-11.0) fl Gran % 42.5 (36.0-66.0) % Eos # (Auto) 0.21 (0-0.5) Absolute Lymphs (auto) 3.79 (1.0-4.6) Absolute Monos (auto) 0.63 (0.0-1.3) Lymphocytes % 46.5 H (24.0-44.0) % Monocytes % 7.7 (0.0-12.0) % Eosinophils % 2.6 (0.00-5.0) % Basophils % 0.7 (0.0-0.4) % Absolute Granulocytes 3.46 (1.4-6.9) Basophils # 0.06 (0-0.4) Sodium 139 (137-145) mmol/L Potassium 3.5 (3.5-5.1) mmol/L Chloride 106 (98-107) mmol/L Carbon Dioxide 23 (22-30) mmol/L Anion Gap 14.3 (5-15) MEQ/L BUN 20 H (7-17) mg/dL Creatinine 1.12 H (0.52-1.04) mg/dL Estimated GFR 54.5 ML/MIN Glucose 140 H (74-106) mg/dL Calcium 9.7 (8.4-10.2) mg/dL Magnesium (1.6-2.3) mg/dL Total Bilirubin 0.20 (0.2-1.3) mg/dL AST 18 (14-36) U/L ALT 14 (0-35) U/L Alkaline Phosphatase 74 (38-126) U/L Troponin I (0.000-0.034) ng/mL NT-Pro-B Natriuret Pep 104 (0-900) pg/mL Serum Total Protein 6.6 (6.3-8.2) g/dL Albumin 4.1 (3.5-5.0) g/dL - Progress Progress: improved Progress Note: Patient reassessed. She feels well. Patient monitored throughout her stay in our ED. No bouts of tachycardia. No bouts of heart palpitations. Patient believes she was just anxious. Troponin negative x2. EKG normal sinus rhythm. Chest x-ray within normal limits as well. Patient currently has no complaints and is requesting discharge. Patient states she is calling her sister for a ride home. She voices no other complaints x-ray at this time. Patient requesting discharge. Portions of this note were created with voice recognition technology. There may be grammatical, spelling, punctuation or sound alike errors 12/01/21 03:34 Counseled pt/family regarding: lab results, diagnosis, need for follow-up, rad results - Departure Departure Disposition: Home Clinical Impression: Heart palpitations Condition: Stable Critical Care Time: No Referrals: NÉSTOR KRISHNAN [Primary Care Provider] - Follow up/PCP as directed Additional Instructions: Discharge/Care Plan MARGE SANCHEZ was seen on 12/01/21 in the Emergency Room. The patient was counseled regarding Diagnosis,Lab results, Imaging studies, need for follow up and when to return to the Emergency Room. Prescriptions given: Discharge Note I have spoken with the patient and/or caregivers. I have explained the patient's condition, diagnosis and treatment plan based on the information available to me at this time. I have answered the patient's and/or caregiver's questions and addressed any concerns. The patient and/or caregivers have as good understanding of the patient's diagnosis, condition and treatment plan as can be expected at this point. The vital signs have been stable. The patient's condition is stable and appropriate for discharge from the emergency department. The patient will pursue further outpatient evaluation with the primary care physician or other designated or consulting physician as outlined in the dis charge instructions. The patient and/or caregivers are agreeable to this plan of care and follow-up instructions have been explained in detail. The patient and/or caregivers have received these instruction. The patient/and or caregivers are aware that any significant change in condition or worsening of symptoms should prompt an immediate return to this or the closest emergency department or call 911.
[2021-12-01 00:24] LABS: ALBUMIN 4.1 g/dL (3.5-5.0); ANION GAP 14.3 MEQ/L (5-15); BILIRUBIN,TOTAL 0.2 mg/dL (0.2-1.3); Calcium 9.7 mg/dL (8.4-10.2); Creatinine 1 1.12 mg/dL (0.52-1.04); EST GLOMERULAR FILTRATION RATE 54.5 ML/MIN; Potassium 3.5 mmol/L (3.5-5.1); Total Protein 6.6 g/dL (6.3-8.2)
[2021-12-01 03:53] VITALS: BP 125/75; PULSE 74; O2SAT 97
--- NOTE | 2021-12-01 08:10 | XRAY ---
Indication: Chest pain. Comparison: April 01, 2020. Portable chest again demonstrates normal heart and lungs. Bony thorax intact with minimal degenerative changes. No new/acute findings.
== END 2021-12-01 03:53 | disposition home or self-care (01) ==
LOC: ED 22:58
DX: R00.2 Palpitations (principal); I69.398 Other sequelae of cerebral infarction; I10 Essential (primary) hypertension; E27.40 Unspecified adrenocortical insufficiency; E11.9 Type 2 diabetes mellitus without complications; Z79.84 Long term (current) use of oral hypoglycemic drugs; Z79.891 Long term (current) use of opiate analgesic; Z79.899 Other long term (current) drug therapy; F41.0 Panic disorder [episodic paroxysmal anxiety]; Z72.0 Tobacco use
CPT/HCPCS: 36000; 36415; 71045; 80053; 83735; 83880; 84484; 85025; 93005; 93041; 94760; 99284

== ENCOUNTER 2022-09-05 11:45 | Day surgery (SDC) | payer MEDICARE ==
[2022-09-05] MEDS ORDERED: Marcaine Mpf 0.5% Vial 30 Ml IV ONE (11:46)
[2022-09-05] MEDS: CEFAZOLIN 2 GM-D5W BAG** 2 GM/50 ML ML IV SCH (11:58)
[2022-09-05] MEDS: Lactated Ringers 1,000 ML IV SCH (11:58)
[2022-09-05] MEDS ORDERED: SUBLIMAZE 100 MCG/2 ML ONE (14:24)
[2022-09-05] MEDS ORDERED: DIPRIVAN 200 MG/20 ML IV ONE (14:26)
[2022-09-05] MEDS ORDERED: Decadron 4 MG INJ ONE (14:28)
[2022-09-05] MEDS ORDERED: Zofran 4 MG/2 ML VIAL ONE (14:28)
[2022-09-05] MEDS: Versed 2 MG/2 ML Injection IV PRN (14:38)
[2022-09-05] MEDS ORDERED: Pre-Attached Lta Kit TP ONE (14:39)
[2022-09-05] MEDS ORDERED: Xylocaine 1% Vial 30 ML PF IJ ONE (15:00)
[2022-09-05] MEDS ORDERED: TORAdol 30 mg Injection ONE (16:10)
[2022-09-05] MEDS ORDERED: OFIRMEV 100 ML IV ONE (16:12)
[2022-09-05] MEDS ORDERED: Lactated Ringers 1,000 ML IV ONE (16:41)
[2022-09-05] MEDS ORDERED: Ephedrine Sulfate 50 MG/ML ONE (16:44)
--- NOTE | 2022-09-05 17:02 | XRAY ---
Indication: Right great toe hardware removal and arthrodesis. Intraoperative fluoroscopy provided for 1 minute 22 seconds. 11 digital spot images submitted for interpretation demonstrates exchange of great toe fusion screw with new intact single screw and single staple. Correlate with intraoperative findings/report.
--- NOTE | 2022-09-05 17:02 | XRAY ---
1 minute and 22 seconds fluoroscopy time in surgery for hardware removal and arthrodesis right 1st toe.
[2022-09-05 17:55] VITALS: O2SAT 97
[2022-09-05 18:12] VITALS: BP 152/84; PULSE 80
--- NOTE | 2022-09-06 10:53 | OP ---
SURGERY DATE: 09/05/2022 1540 PREOPERATIVE DIAGNOSES: 1) Painful retained hardware right first interphalangeal joint. 2) Hallux malleus. 3) Pain right foot. POSTOPERATIVE DIAGNOSES: 1) Painful retained hardware right first interphalangeal joint. 2) Hallux malleus. 3) Pain right foot. PROCEDURES: 1) Removal of hardware interphalangeal joint right foot. 2) Revision of interphalangeal joint fusion. SURGEON: Pavel Lucas DPM. BALANCE TRUER: None. ANESTHESIA: General plus a postoperative digital block. See injectables for details. ESTIMATED BLOOD LOSS: Less than 5 cc. MATERIALS: 3-0 Nylon, 4-0 Monocryl, a 4.0 x 40 mm MAX VPC screw and a 10 x 8 mm Arcus staple. INJECTABLES: 20 cc of a 1:1 of 1% lidocaine plain and 0.5% bupivacaine plain injected in a hallux block type fashion to the right hallux. DESCRIPTION OF PROCEDURE AND FINDINGS: The patient was brought into the operating room and placed on the operating room table in the supine position. At this time general anesthesia was administered. A well-padded tourniquet was applied to the patient's right lower extremity. The right lower extremity was prepped and draped in the typical sterile fashion. At this time attention was directed to the dorsal aspect of the interphalangeal joint. Residual contracture was apparent due to inappropriate weightbearing. At this time a K-wire was utilized to thread the screw and the screw was unable to back out. However, we anterograded it out of the surface skin dorsally. The screw was then removed from the surgical site. A linear incision is made over the dorsal aspect of the joint being careful not to damage the extensor hallucis longus. This was resected from its soft tissue attachments and pulled out of the surgical site. Under fluoroscopic guidance, a sagittal saw was utilized to cut the suspected nonunion out. At this time, cuts were made in order to correct for the hallux malleus in the joint itself, this was checked under fluoroscopy. A K-wire was introduced distally. At this time a 4.0 x 40 mm MAX VPC screw was introduced into the distal aspect of the joint. At this time a 10 x 8 mm Arcus staple was then introduced and deemed to be in adequate position. This was checked under multiple views on fluoroscopy and deemed to be adequate. Copious amounts of sterile saline were utilized to flush the surgical site. 4.0 Monocryl was utilized to coapt the subcutaneous skin edges and 3-0 Nylon was utilized to perform a horizontal mattress to the skin. The tourniquet was let down at approximately 20 minutes total tourniquet time. Estimated blood loss is less than 5 cc. The patient was provided a postoperative block consisting of 20 cc injection of a 1:1 mixture of 1% lidocaine plain and 0.5% bupivacaine plain injected in a digital block-type fashion. A dressing consisting of Betadine, Adaptic, 4x4, Kerlix and KADEEM was applied to the patient's right foot. The patient then was reversed from anesthesia and returned to the preoperative area with vital signs stable and vascular status intact. The patient handled the anesthesia as well as the procedure without significant complication. Postoperative orders as indicated in the patient's discharge chart.
== END 2022-09-05 18:10 | disposition home or self-care (01) ==
LOC: SDC 11:45
PROVIDERS: ATTEND Podiatrist Foot & Ankle Surgery
DX: T84.84XA Pain due to internal orthopedic prosthetic devices, implants and grafts, initial encounter (principal); M20.41 Other hammer toe(s) (acquired), right foot; M79.671 Pain in right foot; E11.9 Type 2 diabetes mellitus without complications
CPT/HCPCS: 20680; 28285; 73630; 76000; 82947; 93005; C1713; J0690; J1100; J1885; J2001; J2250; J2405; J2704; J3010

== ENCOUNTER 2024-12-23 06:01 | Day surgery (SDC) | payer MEDICARE ==
[2024-12-23] MEDS ORDERED: CEFAZOLIN 2 GM/100 ML NaCl 2 GM/100 ML IVPB IV ONE (06:09)
[2024-12-23] MEDS: CEFAZOLIN 2 GM/100 ML NaCl 2 GM/100 ML IVPB IV SCH (06:18)
[2024-12-23] MEDS: Lactated Ringers 1,000 ML IV SCH (06:18)
[2024-12-23 06:29] LABS: Basophil (Absolute #) 0.06 x10^3/uL (0.01-0.08); Eosinophil % 3.5 % (0.7-5.8); Eosinophil (Absolute #) 0.22 x10^3/uL (0.04-0.36); Hematocrit 33.9 % (34.1-44.9); Hemoglobin 11.2 g/dL (11.2-15.7); IMMATURE GRAN # 0.01 x10^3u/L (0.001-0.031); IMMATURE GRAN % 0.2 % (0.001-0.429); Lymphocyte (Absolute #) 1.94 x10^3/uL (1.18-3.74); Lymphocytes % 31.2 % (19.3-51.7); Mean Cell Volume 98.8 fL (79.4-94.8); Mean Corpuscular Hemoglobin 32.7 pg (25.6-32.2); Mean Platelet Volume 9.6 fL (9.4-12.3); Monocyte (Absolute #) 0.48 x10^3/uL (0.24-0.86); Monocytes % 7.7 % (4.7-12.5); Neutrophil % 56.4 % (34.0-71.1); Platelet Count 280 x10^3/uL (182-369); Red Blood Count 3.43 x10^6/uL (3.93-5.22); Red Cell Distribution Width 12.6 % (11.7-14.4); White Blood Count 6.2 x10^3/uL (3.98-10.04)
[2024-12-23] MEDS ORDERED: Marcaine Mpf 0.5% Vial 30 Ml ONE (06:31)
[2024-12-23] MEDS ORDERED: Xylocaine 1% Vial 30 ML PF IJ ONE (06:31)
[2024-12-23 06:34] VITALS: RESP 16
[2024-12-23 06:41] LABS: ALBUMIN 4.5 g/dL (3.5-5.0); ANION GAP 14.3 MEQ/L (5-15); BILIRUBIN,TOTAL 0.4 mg/dL (0.2-1.3); Calcium 9.5 mg/dL (8.4-10.2); INR 0.98 (0.8-3.0); PROTIME 10.7 SECONDS (9.4-12.5); Potassium 4.2 mmol/L (3.5-5.1)
[2024-12-23] MEDS ORDERED: SUBLIMAZE 100 MCG/2 ML ONE (07:07)
[2024-12-23] MEDS ORDERED: propofoL IV ONE ×2 (07:07→08:01)
[2024-12-23] MEDS ORDERED: Versed 2 MG/2 ML Injection ONE (07:07)
[2024-12-23] MEDS ORDERED: Xylocaine-Mpf 2% 5 Ml Vial ONE (07:07)
--- NOTE | 2024-12-23 09:29 | XRAY ---
Indication: Right foot 2nd-4th hammertoe surgery and 2nd metatarsal Migue osteotomy. Intraoperative fluoroscopy provided for 50 seconds. 14 digital spot images submitted for interpretation ultimately demonstrates fusion 2nd-4th toes and 2nd metatarsal head Migue osteotomy all with intact hardware. Correlate with intraoperative findings/report.
[2024-12-23 09:51] VITALS: BP 151/83; PULSE 81; TEMP 97.2; O2SAT 96
--- NOTE | 2024-12-23 13:18 | XRAY ---
50 seconds of fluoroscopy was used in surgery for a right foot 2nd-4th hammertoe surgery and 2nd metatarsal Migue osteotomy.
--- NOTE | 2024-12-24 17:34 | OP ---
SURGERY DATE/TIME: 12/23/2024 [id number] PREOPERATIVE DIAGNOSES: 1) Right foot pain. 2) Hammertoes of digits 2, 3, 4, and 5. 3) Metatarsal deformity. 4) Post stroke. 5) Neuropathy. 6) Diabetes mellitus, controlled. POSTOPERATIVE DIAGNOSES: 1) Right foot pain. 2) Hammertoes of digits 2, 3, 4, and 5. 3) Metatarsal deformity. 4) Post stroke. 5) Neuropathy. 6) Diabetes mellitus, controlled. PROCEDURES: 1) Migue osteotomy in the 2nd metatarsal. 2) Hammertoe correction 2, 3, and 4. 3) Fifth metatarsal derotational arthroplasty. SURGEON: Pavel Lucas DPM ASSISTANTS: Alesha Yeh, Surgical Python Engineer, and RENA Echeverria HEMOSTASIS: Ankle tourniquet set to 250 mmHg for a total of 45 total tourniquet minutes. ESTIMATED BLOOD LOSS: Minimal. MATERIALS: A 2.0 x 14 mm 2.5 x 40 VPC for the 2nd metatarsal and hammertoe respectively. A 2.5 x 36 VPC and a 2.5 x 26 VPC for the 3rd and 4th hammertoes respectively. A 4-0 Monocryl, 3-0 nylon. INDICATIONS FOR PROCEDURE: The patient is a very pleasant 54-year-old female who unfortunately many years ago suffered a stroke that resulted in contractures to the right lower extremity and right upper extremity. From that standpoint, patient has had progressive deformities with contracture. We did operate on her hallux approximately 3 years ago which is still doing very well, however, she has had procedures to the 2nd, 3rd, 4th, and 5th digits in the past with limited success long-term. At this time, she is asking for revision of this surgical intervention. Patient has been made aware of all risks, complications, and benefits of surgical intervention at this time include but not limited to infection, hematoma, seroma, possibility of delayed wound healing, non wound healing, possible delayed bone healing, and possible need for further surgical intervention at a later date. No guarantees were provided as the outcome of surgical intervention. Plenty of time was allowed for the patient to ask questions which were answered to her apparent satisfaction. No guarantees were provided as to the outcome except this time we decided to proceed. DESCRIPTION OF PROCEDURE AND FINDINGS: Patient was brought in the operating room and placed on the operating room table in the supine position. At this time, monitored anesthesia care was administered until the patient was adequately sedated. A well-padded tourniquet was applied to the patient's right ankle and set to 250 mmHg. From that standpoint, the right lower extremity was then prepped and draped in the typical sterile fashion and lowered on the surgical field. Attention was directed to the dorsal aspect of the 2nd metatarsal where a linear incision after using an Esmarch to exsanguinate the leg. The tourniquet was inflated to 250 mmHg. A linear incision was made over the 2nd metatarsal and the 2nd proximal interphalangeal joint at this time because of the dorsiflexor with contracture at the metatarsophalangeal joint. Decision was made to proceed with the Migue osteotomy. A Z-lengthening tenotomy was performed retracting the 2 ends of the tendon apart of the extensor digitorum longus over the 2nd ray. From that standpoint, this was retracted and held out of the way utilizing curve mini hemostat. Once this was performed, the metatarsal head was exposed by making a linear cut through the capsule. Not performing the J strokes to better control transverse plane repair later on for the procedure. From that standpoint, an 18 mm sagittal saw was utilized to make a cut parallel to the weightbearing surface into the dorsal aspect of the second metatarsal head. Shipping the metatarsal head approximately 4 mm posteriorly still respecting the metatarsal parabola. Once this was performed and the position was assessed, the dorsiflexion contracture of the 2nd metatarsophalangeal joint was reduced and this was pinned in a shortened and medialized position to drag the 2nd digit laterally. Once this was performed, a K-wire was placed and then a 14 mm headed partially threaded 2.0 screw was then placed into the 2nd metatarsal head. Once this was performed, a Monocryl was utilized to repair the extensor tendon in a slightly elongated position as well as the lateral aspect of the capsule of the 2nd metatarsophalangeal joint to correct for some of the transverse plane. The medial aspect of the capsule was left open to prevent re-contracture into a medialized position. From that standpoint, resection of hammertoes, proximal interphalangeal joints 2, 3, and 4 were carried out in a very similar fashion where a transverse incision was made. Cuts were made respective to the transverse plane deformity to the 2nd hammertoe. A wedge was taken from the medial aspect of the toe to drag the toe slightly lateral, distal to the interphalangeal joint. For the 3rd and 4th, a wedge was taken out of lateral aspect to medialize the proximal interphalangeal joint to correct the toe in a rectus position for all of this. Measurements were taken. K-wires were placed and the respective hammertoe implants were a variable compression screw measuring 2.5 x 40, 2.5 x 36, and 2.5 x 26 for the 2nd, 3rd, and 4th digits respectively. Once this was performed, a portion of the derotational arthroplasty was carried out by making a distal medial and a proximal lateral wedge resection of the 5th digit over the proximal interphalangeal joint. Once the skin was removed, the joint was resected and then utilizing the skin derotational arthroplasty was performed utilizing 4-0 Monocryl and 4-0 nylon. Following this, all incision sites were irrigated utilizing sterile saline, dressing, 4-0 Monocryl was utilized to coapt the subcutaneous edges and 4-0 nylon was utilized to coapt the skin edges in a horizontal mattress type fashion with the exception of the 5th digit. Dressing consistent of Betadine, Adaptic, 4 x 4, Kerlix, ABD, and Daniele was applied to the patient's right lower extremity. Patient then was reversed from anesthesia and returned to the postoperative anesthesia care unit with vital signs stable and vascular status intact. Patient handled the anesthesia as well as the procedure without significant complications. Postoperative orders as indicated in the patient's discharge chart.
== END 2024-12-23 10:05 | disposition home or self-care (01) ==
LOC: SDC 06:01
PROVIDERS: ATTEND Podiatrist Foot & Ankle Surgery
DX: M20.41 Other hammer toe(s) (acquired), right foot (principal); M79.671 Pain in right foot; E11.40 Type 2 diabetes mellitus with diabetic neuropathy, unspecified; Z86.73 Personal history of transient ischemic attack (TIA), and cerebral infarction without residual deficits; M21.961 Unspecified acquired deformity of right lower leg; Z79.01 Long term (current) use of anticoagulants
CPT/HCPCS: 28285; 28308; 36415; 73630; 76000; 80053; 82947; 85025; 85610; 93005; C1713; J0690; J2250; J2704; J3010